=== PATIENT | male | born 1940 | race Caucasian/White ===

== ENCOUNTER 2022-04-06 12:07 | Inpatient (IN) | payer OTHER, SELFPAY ==
[2022-04-06] VITALS (20 sets, daily range): BP systolic 136–164; BP diastolic 66–77; PULSE 63–70; RESP 11–20; TEMP 36.6–36.8; O2SAT 95–98; BMI 25.4; BMI 25.1
--- NOTE | 2022-04-06 13:18 | CRLHL7_ITS ---
For Patients: As a result of the Century Cures Act, medical imaging exams and procedure reports are released immediately into your electronic medical record. You may view this report before your referring provider. If you have questions, please contact your health care provider. INDICATION: Fall TECHNIQUE: CT head without contrast. COMPARISON: None FINDINGS: CSF spaces: Within normal limits for age. Brain parenchyma: The geronimo-white differentiation is normal. No sign of mass, hemorrhage, or midline shift. Skull base and calvarium: Mild ethmoid sinus mucosal thickening. The visualized orbits are grossly unremarkable. No skull fractures. IMPRESSION: Atraumatic appearance of the brain. Dictated by Hermes Soler MD @ 04/06/2022 2:24:18 PM Please note that all CT scans at this facility use dose modulation, iterative reconstruction, and/or weight-based dosing when appropriate to reduce radiation dose to as low as reasonably achievable. Dictated by: Hermes Soler MD @ 04/06/2022 14:24:27 (Electronically Signed)
[2022-04-06 13:37] LABS: Lactate* 0.7 mmol/L (0.5-1.9)
--- NOTE | 2022-04-06 13:52 | ED.GENADULT ---
HPI - General Adult General Chief complaint: Syncope/Fainted Stated complaint: Fell, hit head Time Seen by Provider: 04/06/22 12:32 Source: patient Mode of arrival: ambulatory Limitations: no limitations History of Present Illness HPI narrative: 81-year-old male coming in today after 2 episodes of syncope that occurred this morning. He states that he was emptying the rack production worker in all of a sudden he remembers waking up after he was lying on the ground. His states that she heard of soon so she came into the room he was on the ground. She ran to him immediately and asked him if he was okay. He was able to reply yes and that he did know what happened. He then was able to get up and continue emptying the rack production worker. His left to the other room and about 10 minutes later she decided to go check on him again right when she walked into the kitchen she saw him start to go to the ground again so she ran to him and he fell on top of her. He hit his face on the what sounds like the edge of the rack production worker door and suffered a laceration to the lip. Unclear if his head hit the ground. Prior to this he has been feeling fine. Denies any recent illness. He remembers waking up within a few seconds and had clear mentation. He did not bite his tongue or lose bowel or bladder control. He denies headache, blurry vision, changes in his hearing. No recent chest pain or shortness of breath. Denies nausea or vomiting. 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 Recently was switched to Lexapro just this last week because he was told his previous medication was causing hyponatremia, he was told his sodium is 129 and then repeat was 130. Related Data Home Medications Medication Instructions Recorded Confirmed escitalopram oxalate 5 mg tablet mg 04/06/22 lisinopril 10 tab 04/06/22 mg-hydrochlorothiazide 12.5 mg tablet tamsulosin 0.4 mg capsule mg PO 04/06/22 Allergies Allergy/AdvReac Type Severity Reaction Status Date / Time No Known Drug Allergies Allergy Verified 04/06/22 12:40 PFSH PFSH Social History Smoking Status: Former smoker Do you use any of these nicotine containing products: None Second hand tobacco smoke exposure: No How often do you have a drink containing alcohol: 4 or more times a week How many standard drinks containing alcohol do you have on a typical day: 1 or 2 How often do you have six or more drinks on one occasion: Never AUDIT-C Alcohol total score: 4 Non-prescribed substance use: denies use service: Yes Exam Narrative: Exam Narrative: GCS is 15. Patient is breathing and speaking without any difficulty. Well-nourished well-developed patient in no acute distress. Alert and oriented. Answers questions appropriately. Mood and affect are appropriate. Thoughts are goal oriented and rational. No tangential or magical thinking noted. Patient speaks in full sentences without needing to catch their breath. Speech is not slurred or pressured. HEENT: Normocephalic. Pupils are equally round reactive to light. Extraocular muscles are intact. Conjunctivae are moist without any icterus noted. Moist mucous membranes. Posterior pharynx is normal. Neck is soft without any lymphadenopathy or thyromegaly. No masses are appreciated. I do not see any ecchymosis or evidence of trauma to the scalp. He does have about a 9 mm vertical laceration just below the left lower lip. This does not cross the vermilion border. Wound edges are gaping open. Cardiovascular: Heart is regular rate and rhythm S1 and S2 are present without any murmurs. Lungs: Clear to auscultation bilaterally no wheezes rhonchi or rales are appreciated. Patient takes deep breaths without any discomfort. Abdomen: Soft and nontender nondistended with normal bowel sounds. No guarding or rebound. No masses or organomegaly appreciated. Extremities: Bilateral lower extremities are without edema. Normal DP and PT pulses. Skin: Well perfused without any obvious rashes. Back: No tenderness to palpation of the cervical, thoracic or lumbar spine. There is no evidence of trauma to the back. Strength is 5/5 of the upper and lower extremities. Reflexes are 2+ and symmetric at the knees. Cranial nerves 3-12 are normal. [id number] is normal. There is no nystagmus either horizontally or vertically. Const: Vital Signs, click to edit/add: Vital Signs - 24 hr 04/06/22 12:40 04/06/22 13:57 04/06/22 13:00 Temperature 98 F Pulse Rate [Apical ] 68 70 Pulse Rate [orthos tatic lying Apical ] 65 Pulse Rate [orthos tatic sitting Apic al] Pulse Rate [orthos tatic standing Api steffen] Respiratory Rate 16 12 Blood Pressure [Le ft Upper Arm] 136/66 140/66 H Blood Pressure [or thostatic lying Le ft Arm] 140/70 H Blood Pressure [or thostatic sitting Left Arm] Blood Pressure [or thostatic standing Left Arm] Pulse Oximetry 96 97 Oxygen Delivery Me thod Room Air Room Air 04/06/22 14:00 04/06/22 14:01 04/06/22 14:01 Temperature Pulse Rate [Apical ] Pulse Rate [orthos tatic lying Apical ] Pulse Rate [orthos tatic sitting Apic al] 64 Pulse Rate [orthos tatic standing Api steffen] Respiratory Rate Blood Pressure [Le ft Upper Arm] Blood Pressure [or thostatic lying Le ft Arm] Blood Pressure [or thostatic sitting Left Arm] 147/71 H Blood Pressure [or thostatic standing Left Arm] 145/70 H Pulse Oximetry Oxygen Delivery Me thod 04/06/22 14:02 04/06/22 13:30 04/06/22 14:00 Temperature Pulse Rate [Apical ] 66 65 Pulse Rate [orthos tatic lying Apical ] Pulse Rate [orthos tatic sitting Apic al] Pulse Rate [orthos tatic standing Api steffen] 66 Respiratory Rate 16 14 Blood Pressure [Le ft Upper Arm] 141/68 H 151/71 H Blood Pressure [or thostatic lying Le ft Arm] Blood Pressure [or thostatic sitting Left Arm] Blood Pressure [or thostatic standing Left Arm] Pulse Oximetry 96 97 Oxygen Delivery Me thod Room Air Room Air Course Course Hospital Course: IV was established and labs were drawn. Patient went in for head CT which was unremarkable. Labs did show hyponatremia with a sodium of 122. Total bilirubin also elevated, unclear significance. Patient did not have any evidence of orthostatic hypotension. EKG showed normal sinus rhythm with a right bundle-branch block. IV fluids were started. Vital Signs Vital signs: Initial Vital Signs Temperature 98 F 04/06/22 12:40 Temperature Source Temporal Artery Scan 04/06/22 12:40 Pulse Rate 68 04/06/22 12:40 Pulse Rhythm 04/06/22 12:40 Respiratory Rate 16 04/06/22 12:40 Blood Pressure 136/66 04/06/22 12:40 Blood Pressure Mean 89 04/06/22 12:40 Pulse Oximetry 96 04/06/22 12:40 Oxygen Delivery Method 04/06/22 12:40 Vital Signs Temperature 98 F 04/06/22 12:40 Pulse Rate 68 04/06/22 12:40 Respiratory Rate 16 04/06/22 12:40 Blood Pressure 136/66 04/06/22 12:40 Pulse Oximetry 96 04/06/22 12:40 Oxygen Delivery Method 04/06/22 12:40 Temperature 98 F 04/06/22 12:40 Pulse Rate 66 04/06/22 14:02 Respiratory Rate 14 04/06/22 14:00 Blood Pressure 145/70 H 04/06/22 14:01 Pulse Oximetry 97 04/06/22 14:00 Oxygen Delivery Method 04/06/22 14:00 Medical Decision Making MDM Narrative Medical decision making narrative: 81-year-old male with syncope and hyponatremia. Patient will be admitted for further management. Medical Records Medical records reviewed: Yes I reviewed the patient's medical records Lab Data Lab results reviewed: Yes I reviewed the patient's lab results Labs: Lab Results 04/06/22 04/06/22 04/06/22 Range/Units 13:30 13:30 13:30 WBC 9.73 (4.50-11.00) K/uL RBC 4.49 (4.30-5.90) m/uL Hgb 13.9 (13.5-17.5) gm/dL Hct 39.2 (37.0-53.0) % MCV 87 (80-100) fL MCH 31 (26-34) pg MCHC 36 (32-36) gm/dL RDW Coeff of [place] 12.0 (11.5-15.5) % Plt Count 196 (140-440) K/uL Neut % (Auto) 86.9 H (42.0-72.0) % Lymph % (Auto) 6.0 L (20-44) % [place] % (Auto) 6.8 (0.0-11.0) % Eos % (Auto) 0.1 (0.0-7.0) % Baso % (Auto) 0.1 (0.0-3.0) % Neut # (Auto) 8.50 H (1.7-7.0) K/uL Lymph # (Auto) 0.60 L (0.90-2.90) K/uL [place] # (Auto) 0.70 (0.00-0.90) K/UL Eos # (Auto) 0.01 (0.00-0.50) K/uL Baso # (Auto) 0.01 (0.00-0.30) K/uL Abs Immat Gran (auto) 0.01 (0.00-0.30) K/uL ESR 2 (2-15) mm/hr Sodium 122 L* (135-149) mmol/L Potassium 4.2 (3.6-5.1) mmol/L Chloride 90 L (96-114) mmol/L Carbon Dioxide 24 (20-32) mmol/L BUN 13 (7-30) mg/dL Creatinine 0.8 (0.5-1.5) mg/dL Estimated Creat Clear 56.00 Estimated GFR 90 ml/min Glucose 110 (60-115) mg/dL Lactate (0.5-1.9) mmol/L Calcium 8.9 (8.4-10.6) mg/dL Total Bilirubin 2.7 H (0.1-1.5) mg/dL Direct Bilirubin 0.2 (0.0-0.5) mg/dL AST 18 (12-35) U/L ALT 14 (4-50) U/L Alkaline Phosphatase 62 (40-150) U/L Troponin I < 0.01 L (0.01-0.04) ng/mL C-Reactive Protein < 0.5 L (0.5-1.0) mg/dL Total Protein 6.5 (6.0-8.3) g/dL Albumin 4.2 (3.3-5.0) g/dL TSH (0.270-4.20) uIU/mL Urine Color (Yellow) Urine Appearance (Clear) Urine pH (5.0-8.5) Ur Specific [place] (1.000-1.030) Urine Protein (Negative) Urine Glucose (UA) (Negative) Urine Ketones (Negative) Urine Blood (Negative) Urine Nitrite (Negative) Urine Bilirubin (Negative) Urine Urobilinogen (0.2-1.0) Ur Leukocyte Esterase (Negative) Urine RBC (0-2) Urine WBC (0-5) Ur Squamous Epith Cells (None-Few) Urine Bacteria (None) Urine Trichomonas Ethyl Alcohol < 0.01 L (0.01-0.03) % 04/06/22 04/06/22 04/06/22 Range/Units 13:30 13:30 14:15 WBC (4.50-11.00) K/uL RBC (4.30-5.90) m/uL Hgb (13.5-17.5) gm/dL Hct (37.0-53.0) % MCV (80-100) fL MCH (26-34) pg MCHC (32-36) gm/dL RDW Coeff of Stanford (11.5-15.5) % Plt Count (140-440) K/uL Neut % (Auto) (42.0-72.0) % Lymph % (Auto) (20-44) % [place] % (Auto) (0.0-11.0) % Eos % (Auto) (0.0-7.0) % Baso % (Auto) (0.0-3.0) % Neut # (Auto) (1.7-7.0) K/uL Lymph # (Auto) (0.90-2.90) K/uL [place] # (Auto) (0.00-0.90) K/UL Eos # (Auto) (0.00-0.50) K/uL Baso # (Auto) (0.00-0.30) K/uL Abs Immat Gran (auto) (0.00-0.30) K/uL ESR (2-15) mm/hr Sodium (135-149) mmol/L Potassium (3.6-5.1) mmol/L Chloride (96-114) mmol/L Carbon Dioxide (20-32) mmol/L BUN (7-30) mg/dL Creatinine (0.5-1.5) mg/dL Estimated Creat Clear Estimated GFR ml/min Glucose (60-115) mg/dL Lactate 0.7 (0.5-1.9) mmol/L Calcium (8.4-10.6) mg/dL Total Bilirubin (0.1-1.5) mg/dL Direct Bilirubin (0.0-0.5) mg/dL AST (12-35) U/L ALT (4-50) U/L Alkaline Phosphatase (40-150) U/L Troponin I (0.01-0.04) ng/mL C-Reactive Protein (0.5-1.0) mg/dL Total Protein (6.0-8.3) g/dL Albumin (3.3-5.0) g/dL TSH 1.610 (0.270-4.20) uIU/mL Urine Color Yellow (Yellow) Urine Appearance Clear (Clear) Urine pH 7.0 (5.0-8.5) Ur Specific [place] 1.020 (1.000-1.030) Urine Protein Negative (Negative) Urine Glucose (UA) Negative (Negative) Urine Ketones 2+ A (Negative) Urine Blood 1+ A (Negative) Urine Nitrite Negative (Negative) Urine Bilirubin Negative (Negative) Urine Urobilinogen 1.0 (0.2-1.0) Ur Leukocyte Esterase Negative (Negative) Urine RBC 2-5 A (0-2) Urine WBC 0-2 (0-5) Ur Squamous Epith Cells None (None-Few) Urine Bacteria None (None) Urine Trichomonas TNP Ethyl Alcohol (0.01-0.03) % Imaging Data CT scan - head: Attestation: I have reviewed the pertinent imaging results. Radiologist's impression: FINDINGS: CSF spaces: Within normal limits for age. Brain parenchyma: The geronimo-white differentiation is normal. No sign of mass, hemorrhage, or midline shift. Skull base and calvarium: Mild ethmoid sinus mucosal thickening. The visualized orbits are grossly unremarkable. No skull fractures. IMPRESSION: Atraumatic appearance of the brain. ECG Data Attestation: I personally reviewed and interpreted this ECG as follows: (Normal sinus rhythm, right bundle branch block, pulse 68) Discharge Plan Discharge Clinical Impression: Hyponatremia, Syncope, Hyperbilirubinemia Patient Disposition: Admitted As Inpatient
[2022-04-06 13:54] LABS: Basophils Absolute Auto 0.01 K/uL (0.00-0.30); Basophils Percent Auto 0.1 % (0.0-3.0); Eosinophils Absolute Auto 0.01 K/uL (0.00-0.50); Eosinophils Percent Auto 0.1 % (0.0-7.0); Hematocrit 39.2 % (37.0-53.0); Hemoglobin* 13.9 gm/dL (13.5-17.5); Immature Granulocytes Abs Auto 0.01 K/uL (0.00-0.30); Mean Corpuscular HGB Conc 36 gm/dL (32-36); Mean Corpuscular Hemoglobin 31 pg (26-34); Mean Corpuscular Volume 87 fL (80-100); Monocytes Percent Auto 6.8 % (0.0-11.0); Neutrophils Percent Auto 86.9 % (42.0-72.0); Platelet Count* 196 K/uL (140-440); Red Blood Count 4.49 m/uL (4.30-5.90); White Blood Count* 9.73 K/uL (4.50-11.00)
[2022-04-06 13:56] LABS: Slide Review Reflex No
[2022-04-06 14:02] LABS: Albumin* 4.2 g/dL (3.3-5.0); Chloride* 90 mmol/L (96-114); Potassium* 4.2 mmol/L (3.6-5.1)
[2022-04-06 14:04] LABS: Creatinine* 0.8 mg/dL (0.5-1.5); Estimated Glomerular Filt Rate 90 ml/min
[2022-04-06 14:05] LABS: Alanine Aminotransferase* 14 U/L (4-50); Alkaline Phosphatase* 62 U/L (40-150); Aspartate Amino Transferase* 18 U/L (12-35); Bilirubin Direct* 0.2 mg/dL (0.0-0.5); Bilirubin Total* 2.7 mg/dL (0.1-1.5); Blood Urea Nitrogen* 13 mg/dL (7-30); Calcium* 8.9 mg/dL (8.4-10.6); Carbon Dioxide* 24 mmol/L (20-32); Glucose* 110 mg/dL (60-115); Total Protein* 6.5 g/dL (6.0-8.3)
[2022-04-06 14:22] LABS: C Reactive Protein* < 0.5 mg/dL (0.5-1.0)
[2022-04-06 14:26] LABS: Appearance Urine Clear (Clear); Bilirubin Urine Negative (Negative); Blood Urine 1+ (Negative); Color Urine Yellow (Yellow); Glucose Urine Negative (Negative); Ketones Urine 2+ (Negative); Leukocyte Esterase Urine Negative (Negative); Nitrite Urine Negative (Negative); Protein Urine Negative (Negative)
[2022-04-06 14:27] LABS: Ethanol* < 0.01 % (0.01-0.03); Sodium* 122 mmol/L (135-149); Troponin I* < 0.01 ng/mL (0.01-0.04)
--- NOTE | 2022-04-06 14:31 | ED.NURSE ---
dr ventura informed of cr low na -122.
[2022-04-06 14:32] LABS: WBC Urine 0-2 (0-5)
[2022-04-06 14:38] LABS: Erythrocyte SedimentationRate* 2 mm/hr (2-15)
[2022-04-06] MEDS: 0.9 % SODIUM CHLORIDE 1000 ml 1,000 ML IV (14:39)
--- NOTE | 2022-04-06 14:51 | ED.NURSE ---
dr ramos' office ([facility] – [place]) was notified that he will be admitted to the hospital due to llow na-122. this was initialed per deep as he wanted dr grigsby to be aware.
--- NOTE | 2022-04-06 15:15 | ED.NURSE ---
bottom left lip was sutured per dr ventura with 2 sutures being placed.
[2022-04-06 16:19] LABS: SARS PCR* Negative SARS-CoV-2 (Negative)
--- NOTE | 2022-04-06 16:35 | W.PC.EDHO ---
Primary Language: Preferred Language: Orientation Status: [] Alert & Oriented [] Slight Confusion [] Known Dx Dementia Transfers By: [] Assist of 1 [] Assist of 2 [] Lift Active Medications Discontinued Medications Generic Name Dose Route Start Last Admin Trade Name Juju PRN Reason Stop Dose Admin Sodium Chloride 1,000 mls @ 1,000 mls/hr 04/06/22 14:30 04/06/22 15:30 0.9 % Sodium Chloride 1000 Ml IV 04/06/22 15:29 Infused .Q1H JAKUB Infusion Description of Symptoms ED Triage Present Problem had 2 episodes this am of losing consciousness and Description falling to the floor. did fall onto his and she is also an ED pt due to her breaking her fall. has a sore nose and lower lip. is aware of events surrounding the incidents. denies any other trauma. was out for only a few seconds. the time between the events were less than 10 minutes. had not had brfst yet. did not sleep well. is on new medication-lexapro. ED Triage Date of Onset of 04/06/22 Symptoms Female History Patient Zara Coma Scale [place] coma scale total score 15 Pain Pain Description [Lower Face] Sharp,Dull, Achy Pain Description [Lower Face] Tender Pain Intensity [Lower Face] 1 Pain Intensity [Lower Face] 1 Pain Intensity 1 Pain Scale Used [Lower Face] Numeric (1 - 10) Pain Scale Used [Lower Face] Numeric (1 - 10) Pain Scale Used Numeric (1 - 10) IV Insertion/Site Date of IV Line Insertion [ 04/06/22 Right Antecubital] Oxygen Administration Pulse Oximetry 97 Pulse Oximetry 96 Pulse Oximetry 97 Pulse Oximetry 96 Oxygen Delivery Method Room Air Oxygen Delivery Method Room Air Oxygen Delivery Method Room Air Oxygen Delivery Method Room Air Cardiac Monitoring EKG Method 12 Lead
--- NOTE | 2022-04-06 18:34 | P.IMHP_ITS ---
Hospitalist- H&P: HPI History of Present Illness Time Seen by Provider: 18:20 Date Seen: 04/07/22 Chief complaint: Fell, hit head Narrative: Hermes Paula is a 81 year old male who presented through the ER for presyncope/syncope. He got up as usual this morning and went out to garage to exercise, but didn't feel right, so went back in house without exercising and started to put dishes away from chip separator. Next thing he knew his was picking him up off the floor. Then he blacked out again and came to having fallen onto his . His says she was in laundry room and heard a tray fall and a thump on the floor. She went to check on him and he was underneath the door of the chip separator. It appeared the chip separator door had hit his face and he had a small lip laceration. He was awake and said he was okay and started to stand up. She went back to laundry room and came back to check on him less than 10 minutes later. He was looking like he was going to pass out again, so she tried to catch him, but got pinned underneath him for a few minutes. His upper body was rigid and shaking in the shoulders and arms and his eyes were rolling around. He did not completely lose consciousness that she saw either time. He did not loose bowel or bladder, did not bite tongue or inside of cheek. He was red, hot, flushed, and sweaty, not pale. When he became more aware, he was able to get up and they called their daughter, who brought them both to the ER. He had a syncopal episode at home in mid January. This was associated with abdominal pain and he has a history of diverticulitis. He called his primary care provider who told him to eat a bland diet for a week. He did that and it got better. Did not have any more syncopal episodes until today. A week ago he started taking escitalopram. Since then he has felt fatigued and finds himself yawning frequently, several times an hour. He has felt more stressed and each day this week he felt like it was getting harder and harder to fall asleep. He and his family described a mental breakdown earlier this year for which he was hospitalized in an inpatient psychiatric briones at [facility] in [facility]. During this mental breakdown he had hallucinations and delusions. He saw things such as lights coming out of people skin or heads, little green men, and thought that his with these aliens were going to kill him. Since being hospitalized for this, his and daughter tell me that he has not been the same. He has had some trouble with memory, he does not try past himself, will start to talk and then stop mid sentence, refusing to stay anymore or saying that he does not know what to say. I have reviewed Dr. Landin's note from 02/17/2022. This is his psychiatrist. He has been referred to get comprehensive memory testing, but this has not yet taken place. At that time he saw his psychiatrist, he had been off olanzapine for a while and was having more insomnia, irritability, loss of interest in things. He was started back on olanzapine at that time. His course of this finished on March 20. He was prescribed escitalopram but had not yet started it. He saw his primary care provider, Dr. Coleman, on 04/01/2022 for an annual physical. At that time his sodium was 129. He started taking escitalopram. Review of Systems Const: Reports: fatigue (fatigues easily and yawns a lot over the past week, since new med) and malaise; Denies: fever, chills or night sweats Eyes: Reports: blurry vision (harder seeing at night in last six months, has appt with eye doctor); Denies: change in vision Cardio: Denies: chest pain, palpitations, swelling of feet/ankles, lightheadedness or shortness of breath with exertion Resp: Denies: shortness of breath or cough GI: Reports: diarrhea (one time yesterday); Denies: abdominal pain, nausea or vomiting : Reports: urinary urgency and nighttime urination (3x/night); Denies: painful urination or urinary frequency Musculo: Denies: back pain Integ/Breast: Denies: rash Neuro: Denies: headache Psych: Reports: anxiety, difficulty concentrating and other (depression) Endo: Reports: fatigue (fatigues easily and yawns a lot over the past week, since new med) [facility] Medical History (Updated 04/07/22 @ 00:43 by Anna Murphy MD) Acid reflux Anxiety BPH (benign prostatic hyperplasia) Hearing loss of both ears Hypertension Hyponatremia 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 Denies recreational drug use. Highest level of school completed/degree received: high school graduate Smoking Status: Former smoker Do you use any of these nicotine containing products: None Second hand tobacco smoke exposure: No How often do you have a drink containing alcohol: 4 or more times a week Alcohol type: wine How many standard drinks containing alcohol do you have on a typical day: 1 or 2 How often do you have six or more drinks on one occasion: Never AUDIT-C Alcohol total score: 4 Non-prescribed substance use: denies use Caffeine: Yes (2 cups daily) service: Yes Meds Home Medications and Allergies Home Medications Medication Instructions Recorded Confirmed Type cholecalciferol (vitamin D3) 25 1,000 unit PO DAILY 04/06/22 04/06/22 History mcg (1,000 unit) tablet (Vitamin D3) escitalopram oxalate 5 mg tablet 5 mg PO DAILY 04/06/22 04/06/22 History lisinopril 10 1 tab PO DAILY 04/06/22 04/06/22 History mg-hydrochlorothiazide 12.5 mg tablet tamsulosin 0.4 mg capsule 0.4 mg PO DAILY 04/06/22 04/06/22 History Allergies Allergy/AdvReac Type Severity Reaction Status Date / Time No Known Drug Allergies Allergy Verified 04/06/22 12:40 Exam Narrative: Exam Narrative: General: No acute distress. Awake alert oriented x3. HEENT: Normocephalic atraumatic, pace has 2 small abrasions on the left nostril and a hemostatic suture-repaired left lower lip laceration, pupils equally round and reactive to light and accommodation. Oropharynx clear. Mucous membranes are moist. No cervical lymphadenopathy, thyromegaly or carotid bruits. No JVD. Cardiovascular: Regular rate and rhythm. No murmurs, gallops, or rubs. Chest: No increased work of breathing. Clear to auscultation bilaterally. No crackles or wheezes. Abdomen: Bowel sounds present. Soft, nondistended, nontender. No hepa tosplenomegaly or masses. Extremities: No edema, no cyanosis or clubbing. Skin: No jaundice, no pallor, no rashes. Neuro: There are no focal deficits. Romberg is negative. Gait was not assessed, daughter reports he was able to ambulate and transfer himself into and out of the car on his own to get to the emergency department today. Cranial nerves 2-12 are intact. Extraocular movements are full. No nystagmus. No facial asymmetry. Tongue is midline. Peripheral vision and vision are grossly intact. Strength is 5/5 in all 4 extremities. Light touch sensation is intact in face body and extremities. Coordination is intact in upper and lower extremities. DTRs are intact and symmetric in upper and lower extremities. Const: Vital Signs, click to edit/add: Vital Signs - 24 hr 04/06/22 12:40 04/06/22 13:57 04/06/22 13:00 Temperature 98 F Pulse Rate [Apical ] 68 70 Pulse Rate [Left A pical] Pulse Rate [orthos tatic lying Apical ] 65 Pulse Rate [orthos tatic sitting Apic al] Pulse Rate [orthos tatic standing Api steffen] Respiratory Rate 16 12 Blood Pressure [Le ft Upper Arm] 136/66 140/66 H Blood Pressure [Ri ght Arm] Blood Pressure [or thostatic lying Le ft Arm] 140/70 H Blood Pressure [or thostatic sitting Left Arm] Blood Pressure [or thostatic standing Left Arm] Pulse Oximetry 96 97 Oxygen Delivery Me thod Room Air Room Air 04/06/22 14:00 04/06/22 14:01 04/06/22 14:01 Temperature Pulse Rate [Apical ] Pulse Rate [Left A pical] Pulse Rate [orthos tatic lying Apical ] Pulse Rate [orthos tatic sitting Apic al] 64 Pulse Rate [orthos tatic standing Api steffen] Respiratory Rate Blood Pressure [Le ft Upper Arm] Blood Pressure [Ri ght Arm] Blood Pressure [or thostatic lying Le ft Arm] Blood Pressure [or thostatic sitting Left Arm] 147/71 H Blood Pressure [or thostatic standing Left Arm] 145/70 H Pulse Oximetry Oxygen Delivery Me thod 04/06/22 14:02 04/06/22 13:30 04/06/22 14:00 Temperature Pulse Rate [Apical ] 66 65 Pulse Rate [Left A pical] Pulse Rate [orthos tatic lying Apical ] Pulse Rate [orthos tatic sitting Apic al] Pulse Rate [orthos tatic standing Api steffen] 66 Respiratory Rate 16 14 Blood Pressure [Le ft Upper Arm] 141/68 H 151/71 H Blood Pressure [Ri ght Arm] Blood Pressure [or thostatic lying Le ft Arm] Blood Pressure [or thostatic sitting Left Arm] Blood Pressure [or thostatic standing Left Arm] Pulse Oximetry 96 97 Oxygen Delivery Nj thod Room Air Room Air 04/06/22 17:25 04/06/22 14:36 04/06/22 15:00 Temperature 98.1 F Pulse Rate [Apical ] 64 63 Pulse Rate [Left A pical] 70 Pulse Rate [orthos tatic lying Apical ] Pulse Rate [orthos tatic sitting Apic al] Pulse Rate [orthos tatic standing Api steffen] Respiratory Rate 20 Blood Pressure [Le ft Upper Arm] 144/68 H 148/71 H Blood Pressure [Ri ght Arm] 164/77 H Blood Pressure [or thostatic lying Le ft Arm] Blood Pressure [or thostatic sitting Left Arm] Blood Pressure [or thostatic standing Left Arm] Pulse Oximetry 97 98 98 Oxygen Delivery Nj thod Room Air Room Air Room Air 04/06/22 15:30 04/06/22 16:00 04/06/22 16:30 Temperature Pulse Rate [Apical ] 68 67 67 Pulse Rate [Left A pical] Pulse Rate [orthos tatic lying Apical ] Pulse Rate [orthos tatic sitting Apic al] Pulse Rate [orthos tatic standing Api steffen] Respiratory Rate 13 14 Blood Pressure [Le ft Upper Arm] 149/73 H 154/73 H 139/68 Blood Pressure [Ri ght Arm] Blood Pressure [or thostatic lying Le ft Arm] Blood Pressure [or thostatic sitting Left Arm] Blood Pressure [or thostatic standing Left Arm] Pulse Oximetry 98 98 97 Oxygen Delivery Nj thod Room Air Room Air Room Air 04/06/22 13:47 04/06/22 13:49 04/06/22 13:50 Temperature Pulse Rate [Apical ] 64 64 Pulse Rate [Left A pical] Pulse Rate [orthos tatic lying Apical ] Pulse Rate [orthos tatic sitting Apic al] Pulse Rate [orthos tatic standing Api steffen] Respiratory Rate 11 L 12 13 Blood Pressure [Le ft Upper Arm] 140/70 H 147/71 H 145/70 H Blood Pressure [Ri ght Arm] Blood Pressure [or thostatic lying Le ft Arm] Blood Pressure [or thostatic sitting Left Arm] Blood Pressure [or thostatic standing Left Arm] Pulse Oximetry 97 98 96 Oxygen Delivery Me thod Room Air Room Air Room Air Documenting provider has reviewed patient's vital signs: yes Hospitalist - H&P: Result Labs Labs: Short CBC 04/06/22 Range/Units 13:30 WBC 9.73 (4.50-11.00) K/uL Hgb 13.9 (13.5-17.5) gm/dL Hct 39.2 (37.0-53.0) % Plt Count 196 (140-440) K/uL BMP 04/06/22 13:30 Sodium 122 L* Potassium 4.2 Chloride 90 L Carbon Dioxide 24 BUN 13 Creatinine 0.8 Glucose 110 Calcium 8.9 Cardiac Enzymes 04/06/22 Range/Units 13:30 Troponin I < 0.01 L (0.01-0.04) ng/mL Liver Function 04/06/22 Range/Units 13:30 Total Bilirubin 2.7 H (0.1-1.5) mg/dL Direct Bilirubin 0.2 (0.0-0.5) mg/dL AST 18 (12-35) U/L ALT 14 (4-50) U/L Alkaline Phosphatase 62 (40-150) U/L Albumin 4.2 (3.3-5.0) g/dL Urine 04/06/22 Range/Units 14:15 Urine Color Yellow (Yellow) Urine Appearance Clear (Clear) Urine pH 7.0 (5.0-8.5) Ur Specific [place] 1.020 (1.000-1.030) Urine Protein Negative (Negative) Urine Glucose (UA) Negative (Negative) ECG Attestation: I personally reviewed and interpreted this ECG as follows: (EKG shows normal sinus rhythm, heart rate 60 beats per minute. Right bundle branch block.) Imaging CT scan - head: Attestation: I have reviewed the pertinent imaging results. Radiologist's impression: Ordering Physician: Shannan Aguayo MD Date of Service: 04/06/22 Procedure(s): CT head/brain wo con Accession Number(s): [id number] cc: Malcolm Coleman MD; Shannan Aguayo MD~ For Patients: As a result of the 21st Century Cures Act, medical imaging exams and procedure reports are released immediately into your electronic medical record. You may view this report before your referring provider. If you have questions, please contact your health care provider. INDICATION: Fall TECHNIQUE: CT head without contrast. COMPARISON: None FINDINGS: CSF spaces: Within normal limits for age. Brain parenchyma: The geronimo-white differentiation is normal. No sign of mass, hemorrhage, or midline shift. Skull base and calvarium: Mild ethmoid sinus mucosal thickening. The visualized orbits are grossly unremarkable. No skull fractures. IMPRESSION: Atraumatic appearance of the brain. Dictated by Hermes Soler MD @ 04/06/2022 2:24:18 PM Please note that all CT scans at this facility use dose modulation, iterative reconstruction, and/or weight-based dosing when appropriate to reduce radiation dose to as low as reasonably achievable. Dictated by: Hermes Soler MD @ 04/06/2022 14:24:27 (Electronically Signed) Assessment and Plan Assessment and plan (1) Hyponatremia: Problem comment: Suspect related to SSRI use, patient is also on diuretic (lisinopril/hydrochlorothiazide) Status: Acute Assessment and Plan: I did not order a FENA since this would be unreliable in the setting of diuretic use. Admit for observation with IV normal saline over the next 8 hours, 2000 mL per day fluid restriction, stop escitalopram, hold diuretic, check sodium now, and recheck sodium in the morning. (2) Syncope: Problem comment: Presyncope versus syncope verses seizure Status: Acute Assessment and Plan: Head CT unremarkable. I think this most likely presyncope. According to his , he had no true loss of consciousness. He had no loss of bowel or bladder function and no tongue biting. The cause of presyncope is not immediately clear, but possibly related to hyponatremia. Orthostatic vital signs are unremarkable. He does not appear volume depleted although he does have ketones in his urine. He will be getting a L of normal saline over the next 8 hours. Monitor on telemetry overnight. Place seizure precautions. Plan VTE risk is low. Reassess if patient is going to be here for more than 1 midnight.
[2022-04-06 20:26] LABS: Sodium* 123 mmol/L (135-149)
[2022-04-06] MEDS: 0.9 % SODIUM CHLORIDE 1000 ml 1,000 ML 125 ML IV (21:02)
--- NOTE | 2022-04-06 22:09 | PC.NURSE ---
Shift Note 19-23: pt pleasant and cooperative, VSS with the exception of elevated BP. LS clear, BS active, Tele reads NSR. Pt up with SBA with walker and gait belt, gait steady, Pt denies dizziness or syncope. Pt has small laceration on upper lip with 2 sutures resulted from today's fall. Pt denies pain or stiffness. Pt does need frequent cuing and encouragement for ADLs, but is A&O x3. PIV in right AC is asymptomatic and patent with NS running. See eMAR for medication administration and lab report for electrolyte levels.
[2022-04-07] VITALS (10 sets, daily range): BP systolic 146–215; BP diastolic 68–107; PULSE 63–89; RESP 16–20; TEMP 36.8–36.9; O2SAT 95–97
[2022-04-07] MEDS: 0.9 % SODIUM CHLORIDE 1000 ml 1,000 ML 125 ML IV (04:30)
--- NOTE | 2022-04-07 06:03 | PC.NURSE ---
end of shift. pt has been very pleasant. no pain. tele is NSR. IV is patent. he is a fall risk. alarms are on. he is up with SBA. he has some dizziness and lightheadedness at times. he has been steady for story writer. Pt has small laceration on upper lip. ortho BP done. he was not dizzy or lightheaded last time up. he is eating, drinking and voiding with no problems. he is using the call light appropiately.
[2022-04-07 07:28] LABS: Chloride* 93 mmol/L (96-114); Potassium* 4.1 mmol/L (3.6-5.1); Sodium* 125 mmol/L (135-149)
[2022-04-07 07:30] LABS: Creatinine* 0.7 mg/dL (0.5-1.5); Estimated Glomerular Filt Rate 94 ml/min
[2022-04-07 07:31] LABS: Blood Urea Nitrogen* 10 mg/dL (7-30); Calcium* 8.6 mg/dL (8.4-10.6); Carbon Dioxide* 22 mmol/L (20-32); Glucose* 100 mg/dL (60-115)
[2022-04-07] MEDS: lisinopriL 10 MG TABLET PO (07:55)
[2022-04-07] MEDS: TAMSULOSIN HCL 0.4 MG CAPSULE PO (07:56)
[2022-04-07] MEDS: TORSEMIDE 5 MG TABLET PO (08:38)
--- NOTE | 2022-04-07 13:02 | PM.IMPN1 ---
Progress Note: A&P Assessment and plan (1) Hyponatremia: Problem details: Probably due to SSRI plus hydrochlorothiazide. At baseline is borderline hyponatremic chronically probably due to hydrochlorothiazide Status: Acute Assessment and Plan: Discontinue hydrochlorothiazide and Lexapro. Fluid restriction and monitor. (2) Syncope: Problem details: Presyncope versus syncope verses seizure Status: Acute Assessment and Plan: Cardiac monitoring, symptom monitoring, vital sign monitoring. (3) Hyperbilirubinemia: Status: Acute Assessment and Plan: Probably [place] (4) Hypertension: Status: Acute Assessment and Plan: Continue lisinopril. I am going to add a low dose of torsemide which will likely be necessary for blood pressure control and also possibly beneficial for hyponatremia. Time Spent With Patient Total time spent: Total time spent today is 40 minutes, 30 minutes in coordination of care and discussing with patient and other providers management of hyponatremia and syncope Subjective Date Seen: 04/07/22 Interval history: 81-year-old male admitted to the hospital with falls/possible syncope at home and hyponatremia. Uncertain whether the episodes had syncope or whether he fell. No obvious signs of seizures apparently noted by his . He reports that he did feel lightheaded yesterday but no longer feels that way. Overnight he has done well. He has no concerns today other than the cut on his lip. Sodium on admission was 122. In reviewing his records from clinic it looks like his sodium runs around 135 chronically but was as low as 129 last month. He has been chronically on hydrochlorothiazide 12.5 mg daily and recently started on Lexapro. He denies any recent injury or illness. He had an elevated bilirubin of 2.7, largely unconjugated on admission. I reviewed his old medical records for this. It appears his baseline bilirubin over the last 6 years has been around 1.8, largely unconjugated. This is suggestive of a chronic condition such as [place] syndrome Exam Narrative: Exam Narrative: He is alert and appears in no distress. Speech is normal. He is oriented to being in the hospital. He is limited in the details he can give about the events of yesterday indicating some forgetfulness or possibly he was unconscious. Head is noted for a cut on his lower lip on the left side. No other obvious trauma. Respirations are clear to auscultation. Cardiovascular: S1, S2, regular rate and rhythm. Abdomen: Bowel sounds active. Abdomen is soft without tenderness or mass. Extremities without edema. He has no tremor. He moves all 4 extremities well. [id number] is normal. Const: Vital Signs, click to edit/add: Vital Signs - 24 hr 04/06/22 13:57 04/06/22 14:00 04/06/22 14:01 Temperature Pulse Rate Pulse Rate [Apical ] Pulse Rate [Left A pical] Pulse Rate [orthos tatic lying Apical ] 65 Pulse Rate [orthos tatic sitting Apic al] 64 Pulse Rate [orthos tatic standing Api steffen] Respiratory Rate Blood Pressure [Le ft Upper Arm] Blood Pressure [Ri ght Arm] Blood Pressure [or thostatic lying Le ft Arm] 140/70 H Blood Pressure [or thostatic sitting Left Arm] 147/71 H Blood Pressure [or thostatic standing Left Arm] Pulse Oximetry Oxygen Delivery Me thod 04/06/22 14:01 04/06/22 14:02 04/06/22 13:30 Temperature Pulse Rate Pulse Rate [Apical ] 66 Pulse Rate [Left A pical] Pulse Rate [orthos tatic lying Apical ] Pulse Rate [orthos tatic sitting Apic al] Pulse Rate [orthos tatic standing Api steffen] 66 Respiratory Rate 16 Blood Pressure [Le ft Upper Arm] 141/68 H Blood Pressure [Ri ght Arm] Blood Pressure [or thostatic lying Le ft Arm] Blood Pressure [or thostatic sitting Left Arm] Blood Pressure [or thostatic standing Left Arm] 145/70 H Pulse Oximetry 96 Oxygen Delivery Pa thod Room Air 04/06/22 14:00 04/06/22 17:25 04/06/22 14:36 Temperature 98.1 F Pulse Rate Pulse Rate [Apical ] 65 64 Pulse Rate [Left A pical] 70 Pulse Rate [orthos tatic lying Apical ] Pulse Rate [orthos tatic sitting Apic al] Pulse Rate [orthos tatic standing Api steffen] Respiratory Rate 14 20 Blood Pressure [Le ft Upper Arm] 151/71 H 144/68 H Blood Pressure [Ri ght Arm] 164/77 H Blood Pressure [or thostatic lying Le ft Arm] Blood Pressure [or thostatic sitting Left Arm] Blood Pressure [or thostatic standing Left Arm] Pulse Oximetry 97 97 98 Oxygen Delivery Pa thod Room Air Room Air Room Air 04/06/22 15:00 04/06/22 15:30 04/06/22 16:00 Temperature Pulse Rate Pulse Rate [Apical ] 63 68 67 Pulse Rate [Left A pical] Pulse Rate [orthos tatic lying Apical ] Pulse Rate [orthos tatic sitting Apic al] Pulse Rate [orthos tatic standing Api steffen] Respiratory Rate 13 Blood Pressure [Le ft Upper Arm] 148/71 H 149/73 H 154/73 H Blood Pressure [Ri ght Arm] Blood Pressure [or thostatic lying Le ft Arm] Blood Pressure [or thostatic sitting Left Arm] Blood Pressure [or thostatic standing Left Arm] Pulse Oximetry 98 98 98 Oxygen Delivery Pa thod Room Air Room Air Room Air 04/06/22 16:30 04/06/22 13:47 04/06/22 13:49 Temperature Pulse Rate Pulse Rate [Apical ] 67 64 Pulse Rate [Left A pical] Pulse Rate [orthos tatic lying Apical ] Pulse Rate [orthos tatic sitting Apic al] Pulse Rate [orthos tatic standing Api steffen] Respiratory Rate 14 11 L 12 Blood Pressure [Le ft Upper Arm] 139/68 140/70 H 147/71 H Blood Pressure [Ri ght Arm] Blood Pressure [or thostatic lying Le ft Arm] Blood Pressure [or thostatic sitting Left Arm] Blood Pressure [or thostatic standing Left Arm] Pulse Oximetry 97 97 [facility] 04/06/22 13:50 04/06/22 19:43 04/06/22 20:40 Temperature Pulse Rate 69 Pulse Rate [Apical ] 64 Pulse Rate [Left A pical] Pulse Rate [orthos tatic lying Apical ] Pulse Rate [orthos tatic sitting Apic al] Pulse Rate [orthos tatic standing Api steffen] Respiratory Rate 13 20 Blood Pressure [Le ft Upper Arm] 145/70 H Blood Pressure [Ri ght Arm] Blood Pressure [or thostatic lying Le ft Arm] Blood Pressure [or thostatic sitting Left Arm] Blood Pressure [or thostatic standing Left Arm] Pulse Oximetry 96 97 [facility] 04/06/22 19:30 04/06/22 23:15 04/06/22 23:15 Temperature 98.1 F 98.3 F Pulse Rate Pulse Rate [Apical ] Pulse Rate [Left A pical] 69 Pulse Rate [orthos tatic lying Apical ] Pulse Rate [orthos tatic sitting Apic al] Pulse Rate [orthos tatic standing Api steffen] Respiratory Rate 16 18 18 Blood Pressure [Le ft Upper Arm] Blood Pressure [Ri ght Arm] 149/66 H 155/72 H Blood Pressure [or thostatic lying Le ft Arm] Blood Pressure [or thostatic sitting Left Arm] Blood Pressure [or thostatic standing Left Arm] Pulse Oximetry 97 95 Oxygen Delivery Me thod Room Air Room Air 04/07/22 00:08 04/07/22 03:20 04/07/22 03:22 Temperature 98.2 F Pulse Rate 64 Pulse Rate [Apical ] Pulse Rate [Left A pical] Pulse Rate [orthos tatic lying Apical ] 89 Pulse Rate [orthos tatic sitting Apic al] 81 Pulse Rate [orthos tatic standing Api steffen] 70 Respiratory Rate 16 Blood Pressure [Le ft Upper Arm] Blood Pressure [Ri ght Arm] 162/80 H Blood Pressure [or thostatic lying Le ft Arm] 215/107 H Blood Pressure [or thostatic sitting Left Arm] 199/98 H Blood Pressure [or thostatic standing Left Arm] 162/80 H Pulse Oximetry 96 Oxygen Delivery Me thod Room Air 04/07/22 07:20 04/07/22 07:40 04/07/22 10:00 Temperature 98.4 F Pulse Rate 63 Pulse Rate [Apical ] Pulse Rate [Left A pical] 68 Pulse Rate [orthos tatic lying Apical ] 72 Pulse Rate [orthos tatic sitting Apic al] 73 Pulse Rate [orthos tatic standing Api steffen] 76 Respiratory Rate 20 Blood Pressure [Le ft Upper Arm] Blood Pressure [Ri ght Arm] 151/68 H Blood Pressure [or thostatic lying Le ft Arm] 157/72 H Blood Pressure [or thostatic sitting Left Arm] 159/72 H Blood Pressure [or thostatic standing Left Arm] 164/78 H Pulse Oximetry 95 Oxygen Delivery Me thod Room Air 04/07/22 11:00 Temperature 98.3 F Pulse Rate Pulse Rate [Apical ] Pulse Rate [Left A pical] 69 Pulse Rate [orthos tatic lying Apical ] Pulse Rate [orthos tatic sitting Apic al] Pulse Rate [orthos tatic standing Api steffen] Respiratory Rate 18 Blood Pressure [Le ft Upper Arm] Blood Pressure [Ri ght Arm] 146/68 H Blood Pressure [or thostatic lying Le ft Arm] Blood Pressure [or thostatic sitting Left Arm] Blood Pressure [or thostatic standing Left Arm] Pulse Oximetry 97 Oxygen Delivery Me thod Room Air Documenting provider has reviewed patient's vital signs: yes Labs Labs: Laboratory Results - last 24 hr 04/06/22 04/06/22 04/06/22 13:30 13:30 13:30 WBC 9.73 RBC 4.49 Hgb 13.9 Hct 39.2 MCV 87 MCH 31 MCHC 36 RDW Coeff of [place] 12.0 Plt Count 196 Neut % (Auto) 86.9 H Lymph % (Auto) 6.0 L Stephens % (Auto) 6.8 Eos % (Auto) 0.1 Baso % (Auto) 0.1 Neut # (Auto) 8.50 H Lymph # (Auto) 0.60 L Stephens # (Auto) 0.70 Eos # (Auto) 0.01 Baso # (Auto) 0.01 Abs Immat Gran (auto) 0.01 ESR 2 Sodium 122 L* Potassium 4.2 Chloride 90 L Carbon Dioxide 24 BUN 13 Creatinine 0.8 Estimated Creat Clear 56.00 Estimated GFR 90 Glucose 110 Lactate Calcium 8.9 Total Bilirubin 2.7 H Direct Bilirubin 0.2 AST 18 ALT 14 Alkaline Phosphatase 62 Troponin I < 0.01 L C-Reactive Protein < 0.5 L Total Protein 6.5 Albumin 4.2 TSH Urine Color Urine Appearance Urine pH Ur Specific [place] Urine Protein Urine Glucose (UA) Urine Ketones Urine Blood Urine Nitrite Urine Bilirubin Urine Urobilinogen Ur Leukocyte Esterase Urine RBC Urine WBC Ur Squamous Epith Cells Urine Bacteria Urine Trichomonas Ethyl Alcohol < 0.01 L SARS-CoV-2 (PCR) 04/06/22 04/06/22 04/06/22 13:30 13:30 14:15 WBC RBC Hgb Hct MCV MCH MCHC RDW Coeff of [place] Plt Count Neut % (Auto) Lymph % (Auto) Stephens % (Auto) Eos % (Auto) Baso % (Auto) Neut # (Auto) Lymph # (Auto) Stephens # (Auto) Eos # (Auto) Baso # (Auto) Abs Immat Gran (auto) ESR Sodium Potassium Chloride Carbon Dioxide BUN Creatinine Estimated Creat Clear Estimated GFR Glucose Lactate 0.7 Calcium Total Bilirubin Direct Bilirubin AST ALT Alkaline Phosphatase Troponin I C-Reactive Protein Total Protein Albumin TSH 1.610 Urine Color Yellow Urine Appearance Clear Urine pH 7.0 Ur Specific [place] 1.020 Urine Protein Negative Urine Glucose (UA) Negative Urine Ketones 2+ A Urine Blood 1+ A Urine Nitrite Negative Urine Bilirubin Negative Urine Urobilinogen 1.0 Ur Leukocyte Esterase Negative Urine RBC 2-5 A Urine WBC 0-2 Ur Squamous Epith Cells None Urine Bacteria None Urine Trichomonas TNP Ethyl Alcohol SARS-CoV-2 (PCR) 04/06/22 04/06/22 04/07/22 14:53 19:57 06:18 WBC RBC Hgb Hct MCV MCH MCHC RDW Coeff of [place] Plt Count Neut % (Auto) Lymph % (Auto) Stephens % (Auto) Eos % (Auto) Baso % (Auto) Neut # (Auto) Lymph # (Auto) Stephens # (Auto) Eos # (Auto) Baso # (Auto) Abs Immat Gran (auto) ESR Sodium 123 L* 125 L Potassium 4.1 Chloride 93 L Carbon Dioxide 22 BUN 10 Creatinine 0.7 Estimated Creat Clear 56.00 Estimated GFR 94 Glucose 100 Lactate Calcium 8.6 Total Bilirubin Direct Bilirubin AST ALT Alkaline Phosphatase Troponin I C-Reactive Protein Total Protein Albumin TSH Urine Color Urine Appearance Urine pH Ur Specific [place] Urine Protein Urine Glucose (UA) Urine Ketones Urine Blood Urine Nitrite Urine Bilirubin Urine Urobilinogen Ur Leukocyte Esterase Urine RBC Urine WBC Ur Squamous Epith Cells Urine Bacteria Urine Trichomonas Ethyl Alcohol SARS-CoV-2 (PCR) Negative SARS-CoV-2
--- NOTE | 2022-04-07 13:46 | REH.OT ---
Orders received for OT eval and treat. Pt. moving well and able to complete ADLs. Discussion with patient regarding outpatient cognitive assessments with OT as he is not able to get an appointment for neuropsych testing until August. Patient's daughter present and both agree with outpatient OT. Order obtained and contact information given to patient's daughter.
--- NOTE | 2022-04-07 14:19 | PC.NURSE ---
Patient up to chair for meals. Denies pain or dizziness. Eval by Dr. Hairston, OT, PT and myself this shift. Orthostatic bps completed and results provided to Dr. Hairston. IV to SL. New orders for lisinopril and torsemide initiated with morning med pass. Pt voided 1450cc plus on day shift. Good appetite. Tele indicates NSR with BBB. Pt changed to inpatient status from observation status. Plan recheck of labs in am. Sodium level up to 125. Dtr Elsi updated on plan of care. Report will be given to oncoming shift.
[2022-04-07 15:55] LABS: Sodium* 125 mmol/L (135-149)
--- NOTE | 2022-04-07 23:30 | PC.NURSE ---
Shift Note [id number]: Shift unremarkable. 2000cc FR remains in place.
[2022-04-08 03:00] VITALS: BP 154/73; PULSE 88; RESP 18; TEMP 36.9; O2SAT 97
--- NOTE | 2022-04-08 06:48 | PC.NURSE ---
pleasant and cooperative. [place]. Calls appropriately. No c/o pain. VSS. Stitches to lower lip intact. Tele = NS w/ BBB.
[2022-04-08 07:00] VITALS: BP 173/83; PULSE 83; RESP 18; TEMP 36.8; O2SAT 97
[2022-04-08 07:26] LABS: Albumin* 3.8 g/dL (3.3-5.0); Chloride* 94 mmol/L (96-114)
[2022-04-08 07:27] LABS: Potassium* 3.7 mmol/L (3.6-5.1); Sodium* 127 mmol/L (135-149)
[2022-04-08 07:29] LABS: Bilirubin Direct* 0.1 mg/dL (0.0-0.5); Bilirubin Total* 2.2 mg/dL (0.1-1.5); Carbon Dioxide* 25 mmol/L (20-32); Creatinine* 0.8 mg/dL (0.5-1.5); Estimated Glomerular Filt Rate 90 ml/min; Total Protein* 6.1 g/dL (6.0-8.3)
[2022-04-08 07:30] LABS: Alanine Aminotransferase* 13 U/L (4-50); Alkaline Phosphatase* 54 U/L (40-150); Aspartate Amino Transferase* 17 U/L (12-35); Blood Urea Nitrogen* 14 mg/dL (7-30); Calcium* 8.7 mg/dL (8.4-10.6); Glucose* 104 mg/dL (60-115)
[2022-04-08 07:50] VITALS: PULSE 80
--- NOTE | 2022-04-08 08:53 | PM.DS1 ---
DS: Providers Provider Date Seen: 04/08/22 Date of admission: 04/07/22 08:22 Primary care physician: Malcolm Coleman MD Admitting Clinician: Paco Hairston MD Attending Physician on discharge: Paco Hairston MD Date of Discharge: 04/08/22 DS: Diagnosis Discharge Diagnosis (1) Hyponatremia: Status: Acute Problem details: Probably due to SSRI plus hydrochlorothiazide. At baseline is borderline hyponatremic chronically probably due to hydrochlorothiazide (2) Hypertension: Status: Acute Problem details: Blood pressures consistently mildly elevated. Outpatient followup (3) Syncope: Status: Acute Problem details: No recurrent symptoms during hospital stay. Consistently elevated blood pressures and no orthostatic hypotension (4) Hyperbilirubinemia: Status: Acute Problem details: Chronic, suspected [place] DS: Summary Hospital Course Hospital Course: 81-year-old male admitted to the hospital after a couple falls at home, possibly with syncope. Time of admission he had a normal evaluation for a head injury and treatment for a lip laceration. He was found to have a serum sodium of 122. He was placed on a fluid restriction, SSRI and hydrochlorothiazide were discontinued. He was given torsemide [address] of hydrochlorothiazide. Sodium improved to 127 this morning. Status at Discharge Functional status at discharge: independent ambulation Overall status at discharge: patient is back to baseline Time Spent with Patient Time attestation: Total time spent providing and/or coordinating discharge services: Time spent: Greater than 30 minutes Exam Narrative: Exam Narrative: He is alert and appears in no distress. Healing lip laceration. Head is without evidence of trauma. Respirations are clear to auscultation. Cardiovascular: S1, S2, regular rate and rhythm. Abdomen: Bowel sounds active. Abdomen is soft without tenderness or mass. Extremities without edema. Const: Vital Signs, click to edit/add: Vital Signs - 24 hr 04/07/22 10:00 04/07/22 11:00 04/07/22 15:00 Temperature 98.3 F Pulse Rate Pulse Rate [Left A pical] 69 76 Pulse Rate [orthos tatic lying Apical ] 72 Pulse Rate [orthos tatic sitting Apic al] 73 Pulse Rate [orthos tatic standing Api steffen] 76 Respiratory Rate 18 18 Blood Pressure [Ri ght Arm] 146/68 H Blood Pressure [or thostatic lying Le ft Arm] 157/72 H Blood Pressure [or thostatic sitting Left Arm] 159/72 H Blood Pressure [or thostatic standing Left Arm] 164/78 H Pulse Oximetry 97 Oxygen Delivery Me thod Room Air 04/07/22 15:00 04/07/22 15:00 04/07/22 19:00 Temperature 98.3 F 98.3 F Pulse Rate 76 Pulse Rate [Left A pical] 76 76 Pulse Rate [orthos tatic lying Apical ] Pulse Rate [orthos tatic sitting Apic al] Pulse Rate [orthos tatic standing Api steffen] Respiratory Rate 18 18 Blood Pressure [Ri ght Arm] 148/74 H 154/74 H Blood Pressure [or thostatic lying Le ft Arm] Blood Pressure [or thostatic sitting Left Arm] Blood Pressure [or thostatic standing Left Arm] Pulse Oximetry 96 [facility] 04/07/22 23:00 04/07/22 23:00 04/07/22 23:00 Temperature 98.2 F Pulse Rate 63 Pulse Rate [Left A pical] 78 78 Pulse Rate [orthos tatic lying Apical ] Pulse Rate [orthos tatic sitting Apic al] Pulse Rate [orthos tatic standing Api steffen] Respiratory Rate 18 18 Blood Pressure [Ri ght Arm] 154/74 H Blood Pressure [or thostatic lying Le ft Arm] Blood Pressure [or thostatic sitting Left Arm] Blood Pressure [or thostatic standing Left Arm] Pulse Oximetry 97 [facility] 04/08/22 03:00 Temperature 98.4 F Pulse Rate Pulse Rate [Left A pical] 88 Pulse Rate [orthos tatic lying Apical ] Pulse Rate [orthos tatic sitting Apic al] Pulse Rate [orthos tatic standing Api steffen] Respiratory Rate 18 Blood Pressure [Ri ght Arm] 154/73 H Blood Pressure [or thostatic lying Le ft Arm] Blood Pressure [or thostatic sitting Left Arm] Blood Pressure [or thostatic standing Left Arm] Pulse Oximetry 97 [facility] Documenting provider has reviewed patient's vital signs: yes DS: Data Data Completed and Pending Labs on day of discharge: Labs from last 24 hours 04/08/22 04/07/22 06:27 15:18 Sodium 127 L 125 L Potassium 3.7 Chloride 94 L Carbon Dioxide 25 BUN 14 Creatinine 0.8 Estimated Creat Clear 56.00 Estimated GFR 90 Glucose 104 Calcium 8.7 Total Bilirubin 2.2 H Direct Bilirubin 0.1 AST 17 ALT 13 Alkaline Phosphatase 54 Total Protein 6.1 Albumin 3.8 Discharge Plan Discharge Disposition: Home, Self-Care Date of Admission: 04/07/22 08:22 Attending Provider on Discharge: Paco Hairston Primary Care Provider: Malcolm Coleman Condition: Improved Anticipated Discharge Date/Time: 04/08/22 10:00 Discharge Medications: New potassium chloride 10 mEq Capsule, Extended Release 10 meq PO DAILY Qty: 30 0RF torsemide 5 mg Tablet 5 mg PO DAILY Qty: 30 0RF lisinopril 10 mg Tablet 10 mg PO DAILY Qty: 30 0RF Continued tamsulosin 0.4 mg capsule 0.4 mg PO DAILY cholecalciferol (vitamin D3) [Vitamin D3] 25 mcg (1,000 unit) tablet 1,000 unit PO DAILY Discontinued lisinopril-hydrochlorothiazide 10-12.5 mg tablet 1 tab PO DAILY Label Comments: TAKE ONE TABLET BY MOUTH ONE TIME DAILY escitalopram oxalate 5 mg tablet 5 mg PO DAILY Label Comments: Has been taking for 7 days. Discharge Orders: Discharge Order (Routine); Ordered 04/08/22 Ordered By: Paco Hairston Activity Level: No Restrictions Diet Detail: You have no restrictions on your diet. You may eat reasonable amounts of salt and he may drink fluid to meet your thirst. Do not drink extra fluid or water unless you are thirsty. Follow Up Appointments: Malcolm Coleman MD [Primary Care Provider] - (Appointment in 5 or 6 days. Lab test to include basic metabolic panel at that time) Forms: [employer] Info Instructions
[2022-04-08] MEDS: TAMSULOSIN HCL 0.4 MG CAPSULE PO (09:15)
[2022-04-08] MEDS: lisinopriL 10 MG TABLET PO (09:16)
[2022-04-08] MEDS: POTASSIUM CHLORIDE 10 MEQ CAPSULE ER PO (09:16)
[2022-04-08] MEDS: TORSEMIDE 5 MG TABLET PO (09:16)
--- NOTE | 2022-04-08 12:10 | PC.NURSE ---
Pt eval by Dr. Hairston and myself this am. Mildly forgetful but reorients easily. Pt verbalized understanding of d/c diagnosis, new prescriptions, home meds, f/up appts and sx to report urgently. Dtr Elsi updated on pt's medications, f/up appt and sx to report when she arrived to transport pt home. D/C via W/C with personal belongings to own home @ 11:32 with dtr as transportation.
== END 2022-04-08 11:30 | disposition home or self-care (01) | DRG 641 ==
LOC: ED 15:18 → MEDSURG 16:57
PROVIDERS: Family Medicine; Admitting Provider Family Medicine; Emergency Provider Family Medicine; PCP Family Medicine; Visit Provider Family Medicine
DX: E87.1 Hypo-osmolality and hyponatremia (principal); R55 Syncope and collapse; S01.511A Laceration without foreign body of lip, initial encounter; W19.XXXA Unspecified fall, initial encounter; Y93.G1 Activity, food preparation and clean up; Y92.010 Kitchen of single-family (private) house as the place of occurrence of the external cause; I10 Essential (primary) hypertension; F41.9 Anxiety disorder, unspecified; N40.0 Benign prostatic hyperplasia without lower urinary tract symptoms; K21.9 Gastro-esophageal reflux disease without esophagitis; E80.4 Gilbert syndrome
CPT/HCPCS: 36415; 70450; 80048; 80076; 81001; 82077; 83605; 84295; 84443; 84484; 85025; 85651; 86140; 87086; 87635; 93005; 97116; 97161; 99285; G0378; A9270; J7030

== ENCOUNTER 2022-04-09 11:23 | Inpatient (IN) | payer OTHER, SELFPAY ==
[2022-04-09 12:26] VITALS: BP 174/78; PULSE 71; RESP 18; TEMP 36.1; O2SAT 97; BMI 24.4
[2022-04-09 13:39] LABS: Basophils Absolute Auto 0.03 K/uL (0.00-0.30); Basophils Percent Auto 0.4 % (0.0-3.0); Eosinophils Absolute Auto 0.03 K/uL (0.00-0.50); Eosinophils Percent Auto 0.4 % (0.0-7.0); Hematocrit 40.7 % (37.0-53.0); Hemoglobin* 14.5 gm/dL (13.5-17.5); Immature Granulocytes Abs Auto 0.04 K/uL (0.00-0.30); Lymphocytes Percent Auto 9.9 % (20-44); Mean Corpuscular HGB Conc 36 gm/dL (32-36); Mean Corpuscular Hemoglobin 31 pg (26-34); Mean Corpuscular Volume 87 fL (80-100); Monocytes Percent Auto 10.6 % (0.0-11.0); Neutrophils Percent Auto 78.1 % (42.0-72.0); Platelet Count* 218 K/uL (140-440); RDW Coefficient of Variation % 12.1 % (11.5-15.5); Red Blood Count 4.68 m/uL (4.30-5.90); White Blood Count* 6.68 K/uL (4.50-11.00)
[2022-04-09 13:43] LABS: Slide Review Reflex No
[2022-04-09 13:54] LABS: Albumin* 4.5 g/dL (3.3-5.0)
[2022-04-09 13:55] LABS: Chloride* 94 mmol/L (96-114); Sodium* 128 mmol/L (135-149)
[2022-04-09 13:57] LABS: Alanine Aminotransferase* 13 U/L (4-50); Alkaline Phosphatase* 67 U/L (40-150); Aspartate Amino Transferase* 17 U/L (12-35); Bilirubin Total* 3.2 mg/dL (0.1-1.5); Blood Urea Nitrogen* 13 mg/dL (7-30); Carbon Dioxide* 25 mmol/L (20-32); Creatinine* 0.7 mg/dL (0.5-1.5); Estimated Glomerular Filt Rate 94 ml/min; Glucose* 111 mg/dL (60-115); Total Protein* 6.5 g/dL (6.0-8.3)
[2022-04-09 13:58] LABS: Magnesium* 1.9 mg/dL (1.5-2.6)
[2022-04-09 13:59] LABS: Acetaminophen* < 10.0 ug/mL (10.0-30.0); Ethanol* < 0.01 % (0.01-0.03); Salicylate* < 1.0 mg/dL (1.0-10)
--- NOTE | 2022-04-09 14:01 | ED.GENADULT ---
HPI - General Adult General Date Seen: 04/09/22 Chief complaint: Altered Mental Status Stated complaint: Confused Time Seen by Provider: 04/09/22 12:35 Source: patient, family (Daughter is present), RN notes reviewed, old records reviewed and other (Spoke with Dr. Hairston) Mode of arrival: ambulatory Limitations: no limitations History of Present Illness HPI narrative: Patient presents with his daughter whom is concerned about hallucinations. Marleny is a 81-year-old male that was recently hospitalized for hyponatremia. His Lexapro was stopped, has not been on it for 2 days now per report. His hydrochlorothiazide was also stopped due to the hyponatremia. Per Dr. Hairston his sodium was 122 on admission and on discharge it was 127. I believe he does suffer from some chronic hyponatremia on review of the records. He was hospitalized in October of 2021 with an acute psychosis. Reportedly was on an antipsychotic which did help. His daughter notes that yesterday he hit the buttons on his phone dispatched [facility]. He started to become quite agitated in concerned. On talking to him today he basically has nonsensical speech and is articulating quite well but is basically talking nonsensically. He does not seem to be aware that the content of his thoughts and speech really do not make sense to us. Per his daughter he has been fixated on a nuclear wore coming in that he has caused it. When he set off the emergency services yesterday, he became quite agitated and was thinking that were taking him away. His daughter came over and that is when she really started to notice his change in mentation. He just was released from our hospital yesterday for hyponatremia. Related Data Home Medications Medication Instructions Recorded Confirmed cholecalciferol (vitamin D3) 25 1,000 unit PO DAILY 04/06/22 04/06/22 mcg (1,000 unit) tablet (Vitamin D3) tamsulosin 0.4 mg capsule 0.4 mg PO DAILY 04/06/22 04/06/22 Previous Rx's Medication Instructions Recorded lisinopril 10 mg tablet 10 mg PO DAILY #30 tabs 04/08/22 potassium chloride 10 mEq 10 meq PO DAILY #30 caps 04/08/22 capsule,extended release torsemide 5 mg tablet 5 mg PO DAILY #30 tabs 04/08/22 Allergies Allergy/AdvReac Type Severity Reaction Status Date / Time No Known Drug Allergies Allergy Verified 04/06/22 12:40 Review of Systems Status of ROS: Reports: unobtainable due to mental status [facility] Medical History (Updated 04/09/22 @ 19:22 by Shannan Teran MD) Acid reflux Anxiety BPH (benign prostatic hyperplasia) Hearing loss of both ears Hypertension Hyponatremia 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 Denies recreational drug use. Highest level of school completed/degree received: high school graduate Smoking Status: Former smoker Do you use any of these nicotine containing products: None Second hand tobacco smoke exposure: No How often do you have a drink containing alcohol: 4 or more times a week Alcohol type: wine How many standard drinks containing alcohol do you have on a typical day: 1 or 2 How often do you have six or more drinks on one occasion: Never AUDIT-C Alcohol total score: 4 Non-prescribed substance use: denies use Caffeine: Yes (2 cups daily) service: Yes Exam Const: Vital Signs, click to edit/add: Vital Signs - 24 hr 04/09/22 12:26 04/09/22 15:30 Temperature 97.0 F L Pulse Rate [Right Pulse Oximeter] 71 81 Respiratory Rate 18 16 Blood Pressure [Ri ght Upper Arm] 174/78 H 187/83 H Pulse Oximetry 97 98 Oxygen Delivery Me thod Room Air Room Air Documenting provider has reviewed patient's vital signs: yes Common normals: no apparent distress, no limitations, healthy appearing and alert General appearance: cooperative, comfortable and well kempt Nutritional appearance: thin HENMT: Common normals: normocephalic, head/scalp atraumatic, hearing grossly normal bilaterally, external ears normal, external nose normal, nasal mucous membranes and turbinates normal, moist oral mucous membranes, oropharynx normal and dentition normal Head and scalp: normocephalic and atraumatic Nose: external nose normal and nasal mucous membranes and turbinates normal External ear: external ears normal Eye: Common normals: PERRL, EOMs intact bilaterally, conjunctivae normal and no scleral icterus Conjunctiva: conjunctiva(e) normal Pupil: PERRL Neck & C-Spine: Common normals: full ROM, no lymphadenopathy, supple, no meningeal signs, no JVD and thyroid normal Thyroid: thyroid normal Lymph: Lymphatic: no lymphadenopathy noted Chest: Common normals: inspection of chest normal and palpation of chest normal Resp: Common normals: normal respiratory effort, no retractions, no use of accessory muscles and clear to auscultation bilaterally Auscultation: clear to auscultation bilaterally Cardio: Common normals: no JVD, regular rate, regular rhythm, S1 normal heart sound, S2 normal heart sound, no gallops, no clicks and no murmurs Rate: regular rate Rhythm: regular rhythm Heart sounds: S1 normal and S2 normal GI: Common normals: Normal to inspection, nondistended, normoactive bowel sounds present, soft to palpation, non-tender, no hepatosplenomegaly and no masses Palpation: soft and no hepatosplenomegaly Extremity: Common normals: normal to inspection, full ROM, normal capillary refill, no joint enlargement, no clubbing, cyanosis or edema, no calf tenderness and no pedal edema Neuro: Common normals: CN's II-XII intact bilaterally, moves all extremities, no focal motor deficits, no sensory deficits noted and gait normal Sensorium/orientation: alert Meningeal signs: no meningeal signs Other: He has very succinct speech but is blinking words and phrases together that are nonsensical. He does not seem to have any insight that his speech is not making any sense to those around him. He is calm, cooperative and alert. Psych: Appearance: well kempt Course Course Hospital Course: As stated above, have talked to Dr. Hairston regarding this patient as he was just discharged. Will make sure electrolytes including sodium are not abnormal. I did also review his last visit in October for psychosis where he saw Dr. Aguayo, head CT was done at that time. I see no prior MRI of his head. IA will be considering doing MRI imaging for further workup of this gentleman's hallucinations and altered speech if there is no laboratory explanation for this. He did have another head CT going into the hospital recently. I do not feel a head CT will be as beneficial in delineated current pathology as an MRI. Reevaluation(s) Reevaluation #1: José Miguel our biomedical equipment technician came to get me as when he went to get the patient for his brain MRI, found him on the floor. Patient was lying face down on the floor talking about red light. We were able to roll him over and eventually have him get up and sit in a wheelchair. Initially he would not stand on his own but we were able to prompt him to do so after little Coke seen. He talked about blue light and 1 point. In then after 2 standing he would not sit in a wheelchair. Again with some coaxing he sat in a wheelchair. He was repeating [id number]. Then he was repeating read multiple times. His daughter seems to think that he is in a nuclear war and a fight. Before we got in she stated he was acting like he was almost Army crawling on the ground. I did order 2.5 mg IV Zyprexa so that we will be able to get our brain MRI. He is obviously psychotic, do want to rule out other underlying possible causes with a brain MRI before looking for psychiatric placement however. Time: 16:39 Reevaluation #2: Reviewed the MRI findings with patient and his daughter. There are some mild degenerative changes but certainly no evidence of any stroke or mass. Marleny is now able to talk to me, is making sense. His daughter notes that he is definitely better with the Zyprexa on board but she still feels that he is not completely back to his baseline. We are proceeding with telehealth consultation. I do think we may need to consider hospitalization for stabilization of his condition and appropriate medication management. Time: 18:20 Vital Signs Vital signs: Initial Vital Signs Temperature 97.0 F L 04/09/22 12:26 Temperature Source Temporal Artery Scan 04/09/22 12:26 Pulse Rate 71 04/09/22 12:26 Respiratory Rate 18 04/09/22 12:26 Blood Pressure 174/78 H 04/09/22 12:26 Blood Pressure Mean 110 04/09/22 12:26 Blood Pressure Position Sitting 04/09/22 12:26 Pulse Oximetry 97 04/09/22 12:26 Oxygen Delivery Method 04/09/22 12:26 Vital Signs Temperature 97.0 F L 04/09/22 12:26 Pulse Rate 71 04/09/22 12:26 Respiratory Rate 18 04/09/22 12:26 Blood Pressure 174/78 H 04/09/22 12:26 Pulse Oximetry 97 04/09/22 12:26 Oxygen Delivery Method 04/09/22 12:26 Temperature 97.0 F L 04/09/22 12:26 Pulse Rate 81 04/09/22 15:30 Respiratory Rate 16 04/09/22 15:30 Blood Pressure 187/83 H 04/09/22 15:30 Pulse Oximetry 98 04/09/22 15:30 Oxygen Delivery Method 04/09/22 15:30 Medical Decision Making Lab Data Lab results reviewed: Yes I reviewed the patient's lab results Labs: Lab Results 04/09/22 04/09/22 04/09/22 Range/Units 12:54 13:25 13:25 WBC 6.68 (4.50-11.00) K/uL RBC 4.68 (4.30-5.90) m/uL Hgb 14.5 (13.5-17.5) gm/dL Hct 40.7 (37.0-53.0) % MCV 87 (80-100) fL MCH 31 (26-34) pg MCHC 36 (32-36) gm/dL RDW Coeff of Stanford 12.1 (11.5-15.5) % Plt Count 218 (140-440) K/uL Neut % (Auto) 78.1 H (42.0-72.0) % Lymph % (Auto) 9.9 L (20-44) % Grayson % (Auto) 10.6 (0.0-11.0) % Eos % (Auto) 0.4 (0.0-7.0) % Baso % (Auto) 0.4 (0.0-3.0) % Neut # (Auto) 5.20 (1.7-7.0) K/uL Lymph # (Auto) 0.70 L (0.90-2.90) K/uL Grayson # (Auto) 0.70 (0.00-0.90) K/UL Eos # (Auto) 0.03 (0.00-0.50) K/uL Baso # (Auto) 0.03 (0.00-0.30) K/uL Abs Immat Gran (auto) 0.04 (0.00-0.30) K/uL ESR 2 (2-15) mm/hr Sodium (135-149) mmol/L Potassium (3.6-5.1) mmol/L Chloride (96-114) mmol/L Carbon Dioxide (20-32) mmol/L BUN (7-30) mg/dL Creatinine (0.5-1.5) mg/dL Estimated Creat Clear Estimated GFR ml/min Glucose (60-115) mg/dL Calcium (8.4-10.6) mg/dL Magnesium (1.5-2.6) mg/dL Total Bilirubin (0.1-1.5) mg/dL AST (12-35) U/L ALT (4-50) U/L Alkaline Phosphatase (40-150) U/L Total Protein (6.0-8.3) g/dL Albumin (3.3-5.0) g/dL TSH (0.270-4.200) uIU/mL Salicylates (1.0-10) mg/dL Urine Opiates Screen Negative (Negative) Ur Oxycodone Screen Negative (Negative) Urine Methadone Screen Negative (Negative) Ur Propoxyphene Screen Negative (Negative) Acetaminophen (10.0-30.0) ug/mL Ur Barbiturates Screen Negative (Negative) U Tricyclic Antidepress Negative (Negative) Ur Phencyclidine Scrn Negative (Negative) Ur Amphetamines Screen Negative (Negative) U Methamphetamines Scrn Negative (Negative) U Benzodiazepines Scrn Negative (Negative) Urine Cocaine Screen Negative (Negative) U Marijuana (THC) Screen Negative (Negative) Ur Drug Screen Comment See Note Ethyl Alcohol (0.01-0.03) % SARS-CoV-2 (PCR) (Negative) 04/09/22 04/09/22 04/09/22 Range/Units 13:25 13:25 13:25 WBC (4.50-11.00) K/uL RBC (4.30-5.90) m/uL Hgb (13.5-17.5) gm/dL Hct (37.0-53.0) % MCV (80-100) fL MCH (26-34) pg MCHC (32-36) gm/dL RDW Coeff of Stanford (11.5-15.5) % Plt Count (140-440) K/uL Neut % (Auto) (42.0-72.0) % Lymph % (Auto) (20-44) % Grayson % (Auto) (0.0-11.0) % Eos % (Auto) (0.0-7.0) % Baso % (Auto) (0.0-3.0) % Neut # (Auto) (1.7-7.0) K/uL Lymph # (Auto) (0.90-2.90) K/uL Grayson # (Auto) (0.00-0.90) K/UL Eos # (Auto) (0.00-0.50) K/uL Baso # (Auto) (0.00-0.30) K/uL Abs Immat Gran (auto) (0.00-0.30) K/uL ESR (2-15) mm/hr Sodium 128 L (135-149) mmol/L Potassium 4.0 (3.6-5.1) mmol/L Chloride 94 L (96-114) mmol/L Carbon Dioxide 25 (20-32) mmol/L BUN 13 (7-30) mg/dL Creatinine 0.7 (0.5-1.5) mg/dL Estimated Creat Clear 56.00 Estimated GFR 94 ml/min Glucose 111 (60-115) mg/dL Calcium 9.0 (8.4-10.6) mg/dL Magnesium 1.9 (1.5-2.6) mg/dL Total Bilirubin 3.2 H (0.1-1.5) mg/dL AST 17 (12-35) U/L ALT 13 (4-50) U/L Alkaline Phosphatase 67 (40-150) U/L Total Protein 6.5 (6.0-8.3) g/dL Albumin 4.5 (3.3-5.0) g/dL TSH 2.220 (0.270-4.200) uIU/mL Salicylates < 1.0 L (1.0-10) mg/dL Urine Opiates Screen (Negative) Ur Oxycodone Screen (Negative) Urine Methadone Screen (Negative) Ur Propoxyphene Screen (Negative) Acetaminophen < 10.0 L (10.0-30.0) ug/mL Ur Barbiturates Screen (Negative) U Tricyclic Antidepress (Negative) Ur Phencyclidine Scrn (Negative) Ur Amphetamines Screen (Negative) U Methamphetamines Scrn (Negative) U Benzodiazepines Scrn (Negative) Urine Cocaine Screen (Negative) U Marijuana (THC) Screen (Negative) Ur Drug Screen Comment Ethyl Alcohol < 0.01 L (0.01-0.03) % SARS-CoV-2 (PCR) Negative SARS-CoV-2 (Negative) Imaging Data MRI - head: Attestation: I have reviewed the pertinent imaging results. Radiologist's impression: Patient: MARLENY PRUITT Facility:?[facility] [place] Patient ID:?[id number] Site Patient ID:?[id number]. Site :?[id number] Study:?MRI Head W/O-04/09/2022 5:41:27 PM Ordering Physician:?Parul Campbell Final Report: Indication: ALTERED MENTAL STATUS,SPEECH DIFFICULTIES Technique: Noncontrast sagittal T1 weighted, axial T2 fast spin echo, FLAIR, and diffusion weighted images of the head. Comparison: 04/06/22 CT Findings: Examination is limited due to motion artifact. Mild generalized parenchymal volume loss. No hydrocephalus. No evidence of suspicious intra- or extra-axial fluid collections. No regions of restricted diffusion. Midline structures are centrally located. Incidental left retrocerebellar arachnoid cyst. Minimal mucosal thickening in the left maxillary sinus. Mild mucosal thickening in the ethmoid air cells. Thinning of the ocular lenses likely due to prior cataract surgery changes. Impression: 1. No radiographic evidence of acute intracranial abnormalities. 2. Mild cerebral volume loss. 3. Incidental left retrocerebellar arachnoid cyst. Dictated by Marleny Forbes MD @ 04/09/2022 6:05:26 PM (Electronic Signature) Discharge Plan Discharge Clinical Impression: Acute psychosis Prescriptions: No Action tamsulosin 0.4 mg capsule 0.4 mg PO DAILY cholecalciferol (vitamin D3) [Vitamin D3] 25 mcg (1,000 unit) tablet 1,000 unit PO DAILY potassium chloride 10 mEq Capsule, Extended Release 10 meq PO DAILY Qty: 30 0RF torsemide 5 mg Tablet 5 mg PO DAILY Qty: 30 0RF lisinopril 10 mg Tablet 10 mg PO DAILY Qty: 30 0RF Follow Up/Referrals: Malcolm Coleman MD [Primary Care Provider] -
--- NOTE | 2022-04-09 14:11 | CRLHL7_ITS ---
For Patients: As a result of the Century Cures Act, medical imaging exams and procedure reports are released immediately into your electronic medical record. You may view this report before your referring provider. If you have questions, please contact your health care provider. Indication: ALTERED MENTAL STATUS,SPEECH DIFFICULTIES Technique: Noncontrast sagittal T1 weighted, axial T2 fast spin echo, FLAIR, and diffusion weighted images of the head. Comparison: 04/06/22 CT Findings: Examination is limited due to motion artifact. Mild generalized parenchymal volume loss. No hydrocephalus. No evidence of suspicious intra- or extra-axial fluid collections. No regions of restricted diffusion. Midline structures are centrally located. Incidental left retrocerebellar arachnoid cyst. Minimal mucosal thickening in the left maxillary sinus. Mild mucosal thickening in the ethmoid air cells. Thinning of the ocular lenses likely due to prior cataract surgery changes. Impression: 1. No radiographic evidence of acute intracranial abnormalities. 2. Mild cerebral volume loss. 3. Incidental left retrocerebellar arachnoid cyst. Dictated by Hermes Forbes MD @ 04/09/2022 6:05:26 PM (Electronically Signed)
[2022-04-09 14:50] LABS: SARS PCR* Negative SARS-CoV-2 (Negative)
[2022-04-09 14:53] LABS: Erythrocyte SedimentationRate* 2 mm/hr (2-15)
[2022-04-09 15:11] LABS: Amphetamine Screen Urine Negative (Negative); Barbiturate Screen Urine Negative (Negative); Benzodiazepines Screen Urine Negative (Negative); Cannabinoid Screen Urine Negative (Negative); Cocaine Screen Urine Negative (Negative); Methadone Screen Urine Negative (Negative); Methamphetamines Screen Urine Negative (Negative); Opiate Screen Urine Negative (Negative); Oxycodone Screen Urine Negative (Negative); Phencyclidine Screen Urine Negative (Negative); Tricyclic Antidepressant Urine Negative (Negative)
[2022-04-09 15:30] VITALS: BP 187/83; PULSE 81; RESP 16; O2SAT 98
[2022-04-09] MEDS: OLANZapine 5 MG/ML inj 2.5 MG IVP (16:30)
--- NOTE | 2022-04-09 16:35 | ED.NURSE ---
technician preventative medicine arrived to take patient. Patient was in room with daughter and was laying on floor waiting for nuclear war. MD and RN to bedside. Patient was helped to wheelchair and verbal order given for 2.5mg IV zyprexa. This was given and patient proceded to MRI.
--- NOTE | 2022-04-09 22:15 | ED.NURSE ---
Daughter requested update on patient status. Reviewed recommendation for inpatient mental health bed and process. She requests something to help patient sleep. wrote for 1mg Atdavid.
[2022-04-09] MEDS: LORazepam 2 MG/ML inj 1 MG IV (22:19)
--- NOTE | 2022-04-09 23:00 | ED.NURSE ---
Patient now sleeping. Daughter is leaving for the night. Patient is on camera monitor for safety.
[2022-04-10] VITALS (8 sets, daily range): BP systolic 117–149; BP diastolic 56–72; PULSE 65–89; RESP 10–18; TEMP 35.8–36.8; O2SAT 97–99; BMI 23.3
--- NOTE | 2022-04-10 01:27 | ED.NURSE ---
Addendum entered by Marilia Snyder RN 04/10/22 02:00: [facility] called, reviewing patient. Original Note: Calls made for placement: [facility], no availability until 9AM, can call back after 9AM. [facility]: facility received pt info, will review. Will probably not be accepted until 04/10/22 day shift. [facility], no answer, will continue to call.
[2022-04-10 03:14] LABS: Sodium* 128 mmol/L (135-149)
--- NOTE | 2022-04-10 07:10 | ED.NURSE ---
Pt sleeping at this time. Up x1 at night to void via urinal, tolerated standing well unassisted. Keith HUNT declines d/t Sodium level <130. [facility] still reviewing. Report given to CALLI Posey.
--- NOTE | 2022-04-10 07:33 | W.ED.CHARTNO ---
ED Chart Note Chart Note Details Date: 04/10/22 Details: Received Mr. Paula at change of shift. Has been declined by psychiatric facilities at this point. Uneventful night. Did not require any further interventions/sleep aid other than lorazepam as given by prior provider. Reviewing again potential psychiatric placement with preference for geriatric psychiatric facility.
--- NOTE | 2022-04-10 07:38 | ED.NURSE ---
Called and followed up with [facility] on information that was faxed at [phone] this morning. Spoke with Chantel, charge nurse. States she received pt's information and will review at this time. Awaiting call back
--- NOTE | 2022-04-10 08:01 | ED.NURSE ---
Meal tray ordered for pt. No dietary restrictions per Dr Diaz.
--- NOTE | 2022-04-10 08:30 | ED.NURSE ---
Pt given meal tray
--- NOTE | 2022-04-10 09:15 | ED.NURSE ---
did vomit undigested food. approx 200 ml.
[2022-04-10] MEDS: POTASSIUM CHLORIDE 10 MEQ CAPSULE ER PO (09:30)
[2022-04-10] MEDS: TAMSULOSIN HCL 0.4 MG CAPSULE PO (09:30)
[2022-04-10] MEDS: TORSEMIDE 5 MG TABLET PO (09:31)
[2022-04-10] MEDS: lisinopriL 5 MG TABLET 10 MG PO (09:31)
[2022-04-10] MEDS: OMEPRAZOLE 20 MG CAPSULE DR PO (09:31)
[2022-04-10 09:39] LABS: Albumin* 4.7 g/dL (3.3-5.0); Chloride* 95 mmol/L (96-114)
[2022-04-10 09:40] LABS: Potassium* 4.2 mmol/L (3.6-5.1); Sodium* 130 mmol/L (135-149)
[2022-04-10 09:42] LABS: Alkaline Phosphatase* 65 U/L (40-150); Aspartate Amino Transferase* 19 U/L (12-35); Blood Urea Nitrogen* 13 mg/dL (7-30); Carbon Dioxide* 26 mmol/L (20-32); Creatinine* 0.8 mg/dL (0.5-1.5); Estimated Glomerular Filt Rate 90 ml/min; Total Protein* 7.3 g/dL (6.0-8.3)
[2022-04-10 09:43] LABS: Alanine Aminotransferase* 13 U/L (4-50); Calcium* 9.7 mg/dL (8.4-10.6); Glucose* 105 mg/dL (60-115)
--- NOTE | 2022-04-10 10:09 | ED.NURSE ---
Called and spoke with Giovana at [facility]. Stated they are still reviewing with their senior management team and they should call back in 30 min
--- NOTE | 2022-04-10 10:30 | ED.NURSE ---
Pt would like to know what is going on. Wants to go home. Explained that he would need to stay the night someplace and that nursing is attempting to find place.
--- NOTE | 2022-04-10 10:52 | ED.NURSE ---
[facility] declined pt.
--- NOTE | 2022-04-10 10:57 | ED.NURSE ---
Social work called to assist with finding placement.
--- NOTE | 2022-04-10 11:17 | ED.NURSE ---
Called [facility] [phone]. Currently at capacity, call back at noon.
--- NOTE | 2022-04-10 11:39 | W.PC.EDHO ---
Primary Language: Preferred Language: Orientation Status: [] Alert & Oriented [] Slight Confusion [] Known Dx Dementia Transfers By: [x] Assist of 1 [] Assist of 2 [] Lift Active Medications Generic Name Dose Route Start Last Admin Trade Name Donnellq PRN Reason Stop Dose Admin Lisinopril 10 mg 04/10/22 09:30 04/10/22 09:31 Lisinopril 5 Mg Tablet PO 10 mg DAILY JAKUB Administration Potassium Chloride 10 meq 04/10/22 09:00 04/10/22 09:30 Potassium Chloride 10 Meq Capsule Er PO 10 meq DAILY JAKUB Administration Tamsulosin HCl 0.4 mg 04/10/22 09:00 04/10/22 09:30 Tamsulosin Hcl 0.4 Mg Capsule PO 0.4 mg DAILY JAKUB Administration Torsemide 5 mg 04/10/22 09:00 04/10/22 09:31 Torsemide 5 Mg Tablet PO 5 mg DAILY JAKUB Administration Vitamin D 25 mcg 04/10/22 09:00 04/10/22 09:30 Cholecalciferol (Vitamin D3) 25 Mcg Tablet (1000 Unit) PO 25 mcg DAILY JAKUB Administration Discontinued Medications Generic Name Dose Route Start Last Admin Trade Name Juju PRN Reason Stop Dose Admin Lorazepam 1 mg 04/09/22 22:07 04/09/22 22:19 Lorazepam 2 Mg/Ml Inj IV 04/09/22 22:08 1 mg ONCE ONE Administration Olanzapine 2.5 mg 04/09/22 17:37 04/09/22 16:30 Olanzapine 5 Mg/Ml Inj IVP 04/09/22 17:38 2.5 mg ONCE ONE Administration Omeprazole 20 mg 04/10/22 08:50 04/10/22 09:31 Omeprazole [address] PO 04/10/22 08:51 20 mg ONCE ONE Administration Description of Symptoms ED Triage Present Problem pt here with daughter, has been having issues with Description low sodium and released from med surg yesterday, pt is having some issues with paranoia and racing thoughts per daughter, fixated on a nuclear war coming and he caused it, pt lives with his , denies weakness, a lot of recent med changes per his daughter ED Triage Date of Onset of 04/09/22 Symptoms IV Insertion/Site Date of IV Line Insertion [ 04/09/22 Left Antecubital] Oxygen Administration Pulse Oximetry 99 Pulse Oximetry 97 Pulse Oximetry 98 Pulse Oximetry 97 Oxygen Delivery Method Room Air Oxygen Delivery Method Room Air Oxygen Delivery Method Room Air Oxygen Delivery Method Room Air
[2022-04-10] MEDS: OLANZapine 5 MG/ML inj 2.5 MG IVP (11:54)
[2022-04-10 13:34] LABS: Bilirubin Direct* 0.6 mg/dL (0.0-0.5)
--- NOTE | 2022-04-10 13:58 | PC.SOCIAL ---
Social work: Per MD order for in-pt mental health placement, called [facility] in [place] [phone], and spoke with Odalys in admissions who requested information be faxed. Faxed requested information to [facility] at fax [phone]. Awaiting call back with decision on admit.
--- NOTE | 2022-04-10 15:15 | ED.NURSE ---
[facility] declined. They do not accept pt's insurance.
--- NOTE | 2022-04-10 17:04 | P.IMHP_ITS ---
Hospitalist- H&P: [facility] History of Present Illness Time Seen by Provider: 16:00 Date Seen: 04/10/22 Chief complaint: Confused Narrative: Hermes Paula is a 81 year old man who presents with acute confusion. Patient had been hospitalized for about 2 days recently with hyponatremia, initial sodium 122, sodium 127 at discharge. Known to have chronic hyponatremia from previous records. On current presentation serum sodium is up to 130. During the course of that particular hospitalization his hydrochlorothiazide and his escitalopram (Lexapro) were stopped due to concerns of these medicines contributing to his hyponatremia. Throughout this hospitalization there was no inkling or indication of an evolving psychosis. The day after he was discharged from our hospital, while in his home he pressed the emergency button on his cellphone device summon him emergency personnel to his home. He was quite agitated. Was speaking with his daughter at that time about a sense that he had caused a nuclear disaster. When the emergency department physician attempted to speak with him, she notes that his speech was articulate but nonsensical. Patient seemed unaware that his thoughts and speech were nonsensical. Patient has been in our hospital emergency department for over 24 hours now. A couple of doses of olanzapine (Zyprexa) 2.5 mg IV were administered with excellent results both times. The fax of the medicine were very rapid. The duration of the effects of the medicine lasted a few hours and then seem to wear off. Emergency department personnel attempted transferring patient to inpatient psychiatric unit in [place] but or unable to find an available bed. Patient is being admitted to our hospital now for ongoing cares in this regard. Review of Systems Status of ROS: Reports: 10 or more systems reviewed and unremarkable except as noted in History and below Narrative: Patient and daughter deny any focal motor neurologic deficits. No fevers, rigors, diaphoresis. No recent febrile illnesses. No recent travel or trauma. Patient denies the use of any ldxa-stf-oftadia medications. States he has not drank alcohol for a number of days. May drink alcohol 1-4 times per week, 1-2 drinks per day at the very most. Has never had alcohol withdrawal symptoms. Does not use any other street or recreational drugs. Patient and daughter note that this past October he was admitted and treated in an inpatient setting for a psychotic presentation. Upon discharge from that particular hospitalization for a short period of time he was on an atypical antipsychotic. He is no longer on that medicine. Previously treated with mood stabilizing medication escitalopram (Lexapro). This medicine was stopped a few days ago during his recent hospitalization at [facility] when he was admitted and treated for hyponatremia. Denies angina, anginal equivalent, syncope, nausea, vomiting, diarrhea, constipation, palpitations, dyspnea at rest, paroxysmal nocturnal dyspnea, orthopnea, dyspnea with exertion, abdominal pain, dyspepsia, dysphagia, odynophagia. Denies cold or heat intolerance, hypoglycemic episodes. Denies night sweats or weight loss. Denies dysuria, urgency, frequency, hematuria. Denies cough or facial pressure or pain. Denies myalgias or arthralgias. Denies edema. 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 Denies recreational drug use. Highest level of school completed/degree received: high school graduate Smoking Status: Former smoker Do you use any of these nicotine containing products: None Second hand tobacco smoke exposure: No How often do you have a drink containing alcohol: 4 or more times a week Alcohol type: wine How many standard drinks containing alcohol do you have on a typical day: 1 or 2 How often do you have six or more drinks on one occasion: Never AUDIT-C Alcohol total score: 4 Non-prescribed substance use: denies use Caffeine: Yes (2 cups daily) service: Yes Meds Home Medications and Allergies Home Medications Medication Instructions Recorded Confirmed Type cholecalciferol (vitamin D3) 25 1,000 unit PO DAILY 04/06/22 04/06/22 History mcg (1,000 unit) tablet (Vitamin D3) tamsulosin 0.4 mg capsule 0.4 mg PO DAILY 04/06/22 04/06/22 History Allergies Allergy/AdvReac Type Severity Reaction Status Date / Time No Known Drug Allergies Allergy Verified 04/06/22 12:40 Exam Narrative: Exam Narrative: When I assessed him he is in no acute distress. He is awake, alert, oriented to self, place, and time. Not entirely aware of his situation. Has some recollection of what brought him to the hospital but very minimal. It seems he is able to repeat with others have told him and he does not recall details at all. Appears comfortable at this time. Articulate cooperative. Mood and affect are congruent. Hearing is preserved with hearing aids in place. External auditory canals and tympanic membranes are normal bilaterally. Midline nasal septum. Normal nasal mucosa. Dentition in good repair. Oropharynx benign. A hint of scleral icterus. Vision is preserved. Extraocular muscles are intact. Pupils are equa lly round and reactive to light and accommodation. Skin is intact. No jaundice. No petechiae. No rashes. Is suntanned, and he is outdoors a lot. Be sides working on his lawn he also enjoys golfing. Midline trachea normal thyroid. No JVD or hepatojugular reflux. No carotid bruits. Neck is supple. No adenopathy in the pre or postauricular chains, anterior-posterior cervical chains, supra or infraclavicular fossa or axilla bilaterally. Lungs entirely clear to auscultation without wheezing, rhonchi, or rales. Heart tones with regular rhythm, normal S1-S2, without murmur, gallop, or rub. Abdomen with active bowel sounds, soft, nontender. Thin abdomen. No organomegaly or masses. Extremities without edema. No focal motor neurologic deficits. No tremor, asterixis, or ataxia. Inde pendent transfer, station, and gait. Cranial nerves 3-12 grossly normal save his chronic symmetrically decreased hearing bilaterally. Const: Vital Signs, click to edit/add: Vital Signs - 24 hr 04/10/22 02:03 04/10/22 02:00 04/10/22 07:54 Temperature 98.2 F Pulse Rate [Right Pulse Oximeter] 65 77 Respiratory Rate 10 L 16 Blood Pressure [Ri t Upper Arm] 117/58 L 149/72 H Pulse Oximetry 97 Oxygen Delivery Me thod Room Air 04/10/22 09:34 04/10/22 15:03 Temperature 97.5 F L Pulse Rate [Right Pulse Oximeter] 88 89 Respiratory Rate 16 18 Blood Pressure [Ri t Upper Arm] 131/67 121/56 L Pulse Oximetry 99 99 Oxygen Delivery Me thod Room Air Room Air Documenting provider has reviewed patient's vital signs: yes Hospitalist - H&P: Result Labs Labs: BMP 04/10/22 04/10/22 02:55 09:18 Sodium 128 L 130 L Potassium 4.2 Chloride 95 L Carbon Dioxide 26 BUN 13 Creatinine 0.8 Glucose 105 Calcium 9.7 Liver Function 04/09/22 04/10/22 Range/Units 13:25 09:18 Total Bilirubin 4.0 H (0.1-1.5) mg/dL Direct Bilirubin Cancelled 0.6 H AST 19 (12-35) U/L ALT 13 (4-50) U/L Alkaline Phosphatase 65 (40-150) U/L Albumin 4.7 (3.3-5.0) g/dL Assessment and Plan Assessment and plan (1) Acute psychosis: Status: Acute Assessment and Plan: Etiology not yet determined. This will certainly warrant additional outpatient neuropsychiatric assessments. (2) Hyponatremia: Problem comment: Probably due to SSRI plus hydrochlorothiazide. At baseline is borderline hyponatremic chronically probably due to hydrochlorothiazide Status: Acute (3) Hyperbilirubinemia: Problem comment: Chronic, suspected [place] Status: Acute (4) Hypertension: Problem comment: Blood pressures consistently mildly elevated. 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 Status: Acute (7) Hearing loss of both ears: Problem comment: Uses hearing aids Status: Acute (8) BPH (benign prostatic hyperplasia): Status: Acute Plan 1. Reviewed impression with patient and daughter. Answered their questions. 2. Recommended admission to the hospital. Although he responded to IV Zyprexa emergency department, he is not on a stable regimen of an atypical antipsychotic at all. Efforts have been made to transfer patient to an inpatient psychiatric care unit but none are available across the [facility] at this time. 3. Initiate quetiapine (Seroquel) 25 mg orally twice daily and monitor closely. Continue to use olanzapine (Zyprexa) p.r.n. as needed. 4. Continue to monitor labs 5. Will check a VDRL for possible syphilis as well as erythrocyte sedimentation rate for possible vasculitis. Will also check a TSH. 6. Will ask Occupational therapy to perform a [place] cognitive assessment test for baseline purposes. 7. Patient will need outpatient neuropsychiatric assessment hereafter. 8. May still need to attempt transferring to another institution that has inpatient psychiatric services should his condition not improve or worsen. 9. Patient and daughter agreeable to above stated plans and recommendations. 10. Continue with other supportive efforts.
--- NOTE | 2022-04-10 17:12 | PC.SOCIAL ---
Social work: Summary of attempts made for placement in geriatric in-pt mental health facility: 1. [facility] evaluated and refused pt due to Na<130. 2. [facility] in [place] - refused pt due to insurance not being in network. 3. [facility] - refused pt due to insurance not being in network. 4. [facility] - declined pt, reason unknown. 5. [facility] - information faxed and awaiting decision on admit. There are currently no other facilities with beds available in the [facility]. RN and House Supervisors to continue to work on in-pr mental health placement as needed.
--- NOTE | 2022-04-10 19:20 | PC.NURSE ---
shift note: vss stable. pt up indept in room. pt denies pain. IV to LT AC intact. pt admit to floor @ 1600
[2022-04-10] MEDS: QUETIAPINE 25 MG TABLET PO (20:17)
[2022-04-11] VITALS (8 sets, daily range): BP systolic 122–157; BP diastolic 58–70; PULSE 70–94; RESP 18; TEMP 35.9–36.6; O2SAT 95–97
--- NOTE | 2022-04-11 05:33 | PC.NURSE ---
Shift note: The pt has been pleasant and cooperative. He has been denying chest pain and short of breath. He said that he talked to his Spouse on the phone last night. He is ambulating in the room independently . He has been sleeping well throughout the night. He is alert and oriented to self, place, and time; the pt appeared forgetful occasionally. No signs of agitation noted throughout the shift.
[2022-04-11 06:57] LABS: Hemoglobin* 13.1 gm/dL (13.5-17.5); Mean Corpuscular HGB Conc 35 gm/dL (32-36); Mean Corpuscular Hemoglobin 31 pg (26-34); Mean Corpuscular Volume 89 fL (80-100); Platelet Count* 197 K/uL (140-440); Red Blood Count 4.26 m/uL (4.30-5.90)
[2022-04-11 07:04] LABS: Slide Review Reflex No
[2022-04-11 07:09] LABS: Albumin* 3.5 g/dL (3.3-5.0); Chloride* 98 mmol/L (96-114)
--- NOTE | 2022-04-11 07:09 | PM.IMPN1 ---
Progress Note: A&P Assessment and plan (1) Acute psychosis: Status: Acute Assessment and Plan: Continue Seroquel 50 mg b.i.d., p.r.n. olanzapine. Scheduled melatonin and Celexa. I will look for a safe discharge plan verses transfer to Geriatric Psychiatry. VDRL, still pending. ESR and TSH reassuring. (2) Hyponatremia: Status: Acute Assessment and Plan: Trending. Improving. Hold hydrochlorothiazide. I am starting a low-dose SSRI, Celexa. Will see if this affects his sodium levels. (3) Drop in hemoglobin: Status: Acute Assessment and Plan: He had ketones and was likely overall volume depleted. I can trend this. (4) Hypertension: Problem details: Blood pressures consistently mildly elevated. Outpatient followup Status: Acute (5) Hearing loss of both ears: Problem details: Uses hearing aids Status: Acute (6) BPH (benign prostatic hyperplasia): Status: Acute Assessment and Plan: Continue home meds Subjective Date Seen: 04/11/22 Interval history: Daily Progress Note - Hospital Medicine Day #:2 CC: Disordered thinking, hyponatremia NIGHT UPDATES FROM STAFF & MED, LAB, IMAGING UPDATES Blood pressure 151/66. Afebrile. Pulse 70. Respirations 18. On room air without hypoxia. Blood drawn today included a CBC, mild drop in his hemoglobin from 14.5-13.1 Sodium is up to 131, yesterday morning it was 128 UA is from the 8th. Negative culture. Syphilis pending Brain MRI from the 11th reviewed. Head CT from the 8th reviewed Med review We continued his home tamsulosin, Demadex, lisinopril and vitamin-D. We have instituted Seroquel, initially a 25 mg b.i.d., I have increased this to 50 mg b.i.d. There is a p.r.n. order for lorazepam, olanzapine. Restarting Celexa and melatonin scheduled today Shift note: The pt has been pleasant and cooperative. He has been denying chest pain and short of breath. He said that he talked to his Spouse on the phone last night. He is ambulating in the room independently . He has been sleeping well throughout the night. He is alert and oriented to self, place, and time; the pt appeared forgetful occasionally. No signs of agitation noted throughout the shift. Review of Systems: See subjective Cardiac: No new chest pain/pressure/palpitations. Respiratory: no new dyspnea. GI: No abdominal bloating Objective: Vitals: see above Lungs: Clear. Cardiac: S1S2. Psychiatric: Patent is completely cooperative, aware, insightful. He can discuss the difference between what is real and what is imagine and or not real. Does not specifically remember his words that concerned his family. However he does remember that he questions himself from time to time of what he sees or is thinking is real. He knew the year, he could be insightful about phrases like, ?leave a sleeping dog lie? and ?my neighbor can help me because his hands are full? or ?if you live in a glass house, do not throwing rocks? Disposition/Potential discharge - He has improved to the point that we may be able to do home care with follow-up with outpatient psychiatry. I will be visiting with the family later today.. Total time is 35 minutes with greater than 50% spent in counseling and coordination of care. Exam Const: Vital Signs, click to edit/add: Vital Signs - 24 hr 04/10/22 07:54 04/10/22 09:34 04/10/22 15:03 Temperature 98.2 F 97.5 F L Pulse Rate [Right Brachial] Pulse Rate [Right Pulse Oximeter] 77 88 89 Respiratory Rate 16 16 18 Blood Pressure [Ri ght Arm] Blood Pressure [Ri ght Upper Arm] 149/72 H 131/67 121/56 L Pulse Oximetry 97 99 [facility] Room Air 04/10/22 16:00 04/10/22 16:00 04/10/22 16:00 Temperature 96.5 F L 96.5 F L Pulse Rate [Right Brachial] 82 82 Pulse Rate [Right Pulse Oximeter] Respiratory Rate 18 18 18 Blood Pressure [Ri ght Arm] 135/70 135/70 Blood Pressure [Ri ght Upper Arm] Pulse Oximetry 99 99 99 [facility] Room Air Room Air 04/10/22 20:24 04/10/22 23:00 04/10/22 23:00 Temperature 97.8 F 97.3 F L Pulse Rate [Right Brachial] 69 74 74 Pulse Rate [Right Pulse Oximeter] Respiratory Rate 18 18 18 Blood Pressure [Ri ght Arm] 124/58 L 136/60 Blood Pressure [Ri ght Upper Arm] Pulse Oximetry 99 97 Oxygen Delivery Me thod Room Air Room Air 04/11/22 05:00 Temperature Pulse Rate [Right Brachial] Pulse Rate [Right Pulse Oximeter] Respiratory Rate 18 Blood Pressure [Ri ght Arm] Blood Pressure [Ri ght Upper Arm] Pulse Oximetry Oxygen Delivery Me thod Room Air Labs Labs: Laboratory Results - last 24 hr 04/09/22 04/10/22 04/10/22 13:25 09:18 13:25 WBC RBC Hgb Hct MCV MCH MCHC Plt Count Sodium 130 L Potassium 4.2 Chloride 95 L Carbon Dioxide 26 BUN 13 Creatinine 0.8 Estimated Creat Clear 56.00 Estimated GFR 90 Glucose 105 Haptoglobin Cancelled Calcium 9.7 Total Bilirubin 4.0 H Direct Bilirubin Cancelled 0.6 H AST 19 ALT 13 Alkaline Phosphatase 65 Total Protein 7.3 Albumin 4.7 04/11/22 06:11 WBC 6.10 RBC 4.26 L Hgb 13.1 L Hct 38.0 MCV 89 MCH 31 MCHC 35 Plt Count 197 Sodium Potassium Chloride Carbon Dioxide BUN Creatinine Estimated Creat Clear Estimated GFR Glucose Haptoglobin Calcium Total Bilirubin Direct Bilirubin AST ALT Alkaline Phosphatase Total Protein Albumin
[2022-04-11 07:10] LABS: Potassium* 3.8 mmol/L (3.6-5.1); Sodium* 131 mmol/L (135-149)
[2022-04-11 07:12] LABS: Alkaline Phosphatase* 49 U/L (40-150); Aspartate Amino Transferase* 16 U/L (12-35); Bilirubin Direct* 0.1 mg/dL (0.0-0.5); Bilirubin Total* 1.8 mg/dL (0.1-1.5); Blood Urea Nitrogen* 27 mg/dL (7-30); Carbon Dioxide* 28 mmol/L (20-32); Estimated Glomerular Filt Rate 77 ml/min; Glucose* 93 mg/dL (60-115); Total Protein* 5.6 g/dL (6.0-8.3)
[2022-04-11 07:13] LABS: Alanine Aminotransferase* 12 U/L (4-50); Calcium* 8.9 mg/dL (8.4-10.6)
[2022-04-11 07:43] LABS: Erythrocyte SedimentationRate* 2 mm/hr (2-15)
[2022-04-11] MEDS: POTASSIUM CHLORIDE 10 MEQ CAPSULE ER PO (08:36)
[2022-04-11] MEDS: lisinopriL 10 MG TABLET PO (08:36)
[2022-04-11] MEDS: QUETIAPINE 25 MG TABLET 50 MG PO ×2 (08:36→22:15)
[2022-04-11] MEDS: TAMSULOSIN HCL 0.4 MG CAPSULE PO (08:36)
[2022-04-11] MEDS: CITALOPRAM HYDROBROMIDE 20 MG TABLET 10 MG PO (08:36)
[2022-04-11] MEDS: TORSEMIDE 5 MG TABLET PO (08:37)
[2022-04-11 18:24] LABS: Haptoglobin 193 mg/dL (30-200)
--- NOTE | 2022-04-11 19:49 | PC.NURSE ---
07-19: pt alert and oriented. Asking appropriate questions. Indep in room and halls. Pt showered this AM. VSS.
[2022-04-11] MEDS: MELATONIN 3 MG TABLET 6 MG PO (22:16)
[2022-04-12] VITALS (8 sets, daily range): BP systolic 132–155; BP diastolic 65–79; PULSE 71–91; RESP 16–18; TEMP 36.2–36.6; O2SAT 95–98
--- NOTE | 2022-04-12 05:26 | PC.NURSE ---
Shift note [id number] Pt with stable vitals. Up independantly in room, halls and to the BR. He has slept from 2200 to 0500 without any issues. He cont to be slightly confused at times. Follows directions well .
[2022-04-12 07:03] LABS: Hematocrit 38.1 % (37.0-53.0); Hemoglobin* 12.9 gm/dL (13.5-17.5); Mean Corpuscular HGB Conc 34 gm/dL (32-36); Mean Corpuscular Hemoglobin 30 pg (26-34); Mean Corpuscular Volume 90 fL (80-100); Platelet Count* 187 K/uL (140-440); Red Blood Count 4.24 m/uL (4.30-5.90); White Blood Count* 6.29 K/uL (4.50-11.00)
[2022-04-12 07:12] LABS: Slide Review Reflex No
[2022-04-12 07:19] LABS: Chloride* 98 mmol/L (96-114); Potassium* 3.6 mmol/L (3.6-5.1); Sodium* 131 mmol/L (135-149)
[2022-04-12 07:22] LABS: Blood Urea Nitrogen* 22 mg/dL (7-30); Carbon Dioxide* 29 mmol/L (20-32); Creatinine* 0.9 mg/dL (0.5-1.5); Estimated Glomerular Filt Rate 87 ml/min
[2022-04-12 07:23] LABS: Calcium* 8.8 mg/dL (8.4-10.6); Glucose* 92 mg/dL (60-115); Magnesium* 1.9 mg/dL (1.5-2.6)
[2022-04-12] MEDS: QUETIAPINE 25 MG TABLET 50 MG PO (08:24)
[2022-04-12] MEDS: POTASSIUM CHLORIDE 10 MEQ CAPSULE ER PO (08:24)
[2022-04-12] MEDS: TAMSULOSIN HCL 0.4 MG CAPSULE PO (08:24)
[2022-04-12] MEDS: CITALOPRAM HYDROBROMIDE 20 MG TABLET 10 MG PO (08:25)
[2022-04-12] MEDS: lisinopriL 10 MG TABLET PO (08:25)
[2022-04-12] MEDS: TORSEMIDE 5 MG TABLET PO (08:25)
--- NOTE | 2022-04-12 14:54 | PC.NURSE ---
shift note 07-15: indep in room. Calls appropriately. Pt needing direction and reassurance with tasks. When getting ready to take shower patients asks questions such as, ?Should I take my glasses off and hearing aids out?? ?Should I hang up the towel here so it's ready for me when I get out?? ? Daughter Elsi and Julieth in to visit, they stated pt requires such assistance/direction at home and that they have been working to help gain his confidence. ? Otherwise shift unremarkable. VSS. ?
--- NOTE | 2022-04-12 15:04 | P.IMPN_ITS ---
Progress Note: A&P Assessment and plan (1) Acute psychosis: Status: Acute Assessment and Plan: titrating the Seroquel to 100 mg b.i.d.. Scheduled Celexa and melatonin. we have outpatient psych appt for next week. (2) Hyponatremia: Status: Acute Assessment and Plan: Improved, stable. (3) Drop in hemoglobin: Status: Acute Assessment and Plan: Monitoring. (4) Hypertension: Problem details: Blood pressures consistently mildly elevated. Outpatient followup Status: Acute (5) Hearing loss of both ears: Problem details: Uses hearing aids Status: Acute (6) BPH (benign prostatic hyperplasia): Status: Acute Subjective Date Seen: 04/12/22 Interval history: Daily Progress Note - Hospital Medicine Day #:3 CC: Disordered thinking, hyponatremia NIGHT UPDATES FROM STAFF & MED, LAB, IMAGING UPDATES Patient was reported to have slept well. However, when I went in this morning he was telling me that there was a lot of commotion in the police were here several times. He felt like there were things he was not allowed to do but couldn't elaborate. When I asked him to explain exactly what he remembered about the police he went off track about asking me about my and my service. He does not appear overly agitated just more confused and a little overwhelmed. 138/66 Pulse 91 Afebrile No respiratory distress CBC is stable and unremarkable. His hemoglobin has continued to drift down somewhat. 13.9 down to 12.9 Sodium has been stable and increased. Lifetime load the last 7 days he was down to 122 and he is up to 131 today. The rest of his metabolic panel is unremarkable. As mentioned yesterday is TSH and ESR are on remarkable. UA is from the 8th. Negative culture. Syphilis pending Brain MRI from the 11th reviewed. Head CT from the 8th reviewed Med review We continued his home tamsulosin, Demadex, lisinopril and vitamin-D. We have instituted Seroquel, initially a 25 mg b.i.d., I have increased this to 50 mg b.i.d. - will increase to 100mg BID starting tonight. There is a p.r.n. order for lorazepam, olanzapine. Celexa and melatonin scheduled starting last night; 10mg and 5 mg respectively. Review of Systems: See subjective Cardiac: No new chest pain/pressure/palpitations. Respiratory: no new dyspnea. GI: No abdominal bloating Objective: Vitals: see above Lungs: Clear. Cardiac: S1S2. Psychiatric: As described above patient is more overwhelmed and mildly agitated this morning. No pressured speech. More at a loss of words in explanation for what is happening. He seems a little bit more off track. No obvious visual or auditory hallucinations currently but does report thinking police were on the floor last night. Disposition/Potential discharge - My plan remains the same. I would like to discharge him tomorrow with family support. He does have a follow-up with Dr. Mcnair, [facility], in about a week. Total time is 35 minutes with greater than 50% spent in counseling and coordination of care. Exam Const: Vital Signs, click to edit/add: Vital Signs - 24 hr 04/11/22 19:00 04/11/22 23:00 04/11/22 23:00 Temperature 97.9 F Pulse Rate [Right Brachial] 71 71 Respiratory Rate 18 18 18 Blood Pressure [Ri ght Arm] 157/70 H Pulse Oximetry 95 Oxygen Delivery Me thod Room Air 04/12/22 03:00 04/12/22 07:00 04/12/22 07:00 Temperature 97.7 F 97.6 F Pulse Rate [Right Brachial] 71 72 72 Respiratory Rate 18 18 18 Blood Pressure [Ri ght Arm] 149/71 H 150/74 H Pulse Oximetry 95 97 Oxygen Delivery Me thod Room Air Room Air 04/12/22 11:00 Temperature 97.6 F Pulse Rate [Right Brachial] 91 Respiratory Rate 18 Blood Pressure [Ri ght Arm] 138/66 Pulse Oximetry 96 Oxygen Delivery Me thod Room Air Labs Labs: Laboratory Results - last 24 hr 04/10/22 04/12/22 04/12/22 09:18 06:11 06:11 WBC 6.29 RBC 4.24 L Hgb 12.9 L Hct 38.1 MCV 90 MCH 30 MCHC 34 Plt Count 187 Sodium 131 L Potassium 3.6 Chloride 98 Carbon Dioxide 29 BUN 22 Creatinine 0.9 Estimated Creat Clear 56.00 Estimated GFR 87 Glucose 92 Haptoglobin 193 Calcium 8.8 Magnesium 1.9
[2022-04-12] MEDS: SODIUM CHLORIDE 1 GM TABLET PO (18:10)
--- NOTE | 2022-04-12 18:46 | PC.NURSE ---
pt up ind in room, denies any concerns this shift.
[2022-04-12] MEDS: QUETIAPINE 100 MG TABLET PO (20:06)
[2022-04-12] MEDS: MELATONIN 3 MG TABLET 6 MG PO (20:07)
[2022-04-13 02:56] VITALS: BP 134/72; PULSE 74; RESP 16; TEMP 36.9; O2SAT 97
--- NOTE | 2022-04-13 04:23 | PC.NURSE ---
Pt rested well this night. Pleasant and cooperative. Up IND in room. Reporting zero pain. No N/V.
[2022-04-13 07:00] VITALS: BP 167/79; PULSE 75; RESP 16; TEMP 37.1; O2SAT 97
[2022-04-13 07:02] LABS: HCO3 VBG 31 mmol/L (21-28); PCO2 VBG 50 mmHG (40-50); pH VBG 7.398 (7.32-7.43)
[2022-04-13] MEDS: SODIUM CHLORIDE 1 GM TABLET PO ×2 (08:05→12:11)
[2022-04-13 08:09] LABS: Chloride* 98 mmol/L (96-114); Sodium* 131 mmol/L (135-149)
[2022-04-13 08:10] LABS: Potassium* 4.1 mmol/L (3.6-5.1)
[2022-04-13 08:12] LABS: Creatinine* 0.9 mg/dL (0.5-1.5); Estimated Glomerular Filt Rate 87 ml/min
[2022-04-13 08:13] LABS: Blood Urea Nitrogen* 20 mg/dL (7-30); Calcium* 8.8 mg/dL (8.4-10.6); Carbon Dioxide* 32 mmol/L (20-32); Glucose* 92 mg/dL (60-115)
[2022-04-13 08:24] LABS: C Reactive Protein* < 0.5 mg/dL (0.5-1.0)
[2022-04-13] MEDS: lisinopriL 10 MG TABLET PO (08:37)
[2022-04-13] MEDS: POTASSIUM CHLORIDE 10 MEQ CAPSULE ER PO (08:37)
[2022-04-13] MEDS: TORSEMIDE 5 MG TABLET PO (08:37)
[2022-04-13] MEDS: TAMSULOSIN HCL 0.4 MG CAPSULE PO (08:37)
[2022-04-13] MEDS: CITALOPRAM HYDROBROMIDE 20 MG TABLET 10 MG PO (08:37)
[2022-04-13] MEDS: QUETIAPINE 100 MG TABLET PO (08:38)
[2022-04-13 11:00] VITALS: BP 135/63; PULSE 74; RESP 16; TEMP 36.5; O2SAT 95
--- NOTE | 2022-04-13 13:09 | P.DS_ITS ---
DS: Providers Provider Date Seen: 04/13/22 Date of admission: 04/10/22 16:26 Primary care physician: Malcolm Coleman MD Admitting Clinician: Kelton Betts MD Consults: 04/11/22 12:23 Consult to Occupational Therapy [CONS] Routine Comment: Reason(s) for OT Consult:: Evaluate and Treat Any Restrictions?:: No Restrictions Comment: moca. hx of psychosis. 04/11/22 16:52 Consult to Occupational Therapy [CONS] Routine Comment: Reason(s) for OT Consult:: Evaluate and Treat Any Restrictions?:: No Restrictions Comment: MOCA assessment, please Attending Physician on discharge: Jayla Sue MD [facility] Date of Discharge: 04/13/22 DS: Diagnosis Discharge Diagnosis (1) Acute psychosis: Status: Acute (2) Hyponatremia: Status: Acute (3) Anxiety: Status: Acute (4) Hyperbilirubinemia: Status: Acute Problem details: Chronic, suspected [place] (5) BPH (benign prostatic hyperplasia): Status: Acute DS: Summary Hospital Course Hospital Course: HOSPITALIST DISCHARGE SUMMARY ATTENDING PHYSICIAN: Jayla Sue MD FINAL DIAGNOSIS: Anxiety disorder with psychosis Hyponatremia Cognitive decline HOSPITAL FOLLOWUP ISSUES: 1. Psychiatric outpatient follow-up: Dr. Mcnair will see the patient Tuesday 04/17. 2. Hyponatremia, follow-up lab for 04/17 REFERRALS WHILE ADMITTED: OT and PT REFERRALS AFTER DISCHARGE: Return to Psychiatry BRIEF HOSPITAL COURSE: Victor Manuel is a 81-year-old who presented with his 2nd episode of psychosis in the last year. The 1st time he was transferred to inpatient geriatric psych unit. He discharged 5 days later on Seroquel. He did well for several months managing mild to moderate anxiety. He was admitted last week with hyponatremia. He was only discharge for about 12 hours and then presented again with an acute psychotic episode. He felt his telephone would cause a new nuclear war. He was quite agitated and speaking nonsensically. He was observed in our ER for 24 hours. His symptoms responded quickly and nearly completely to IV olanzapine and p.o. Seroquel. Due to lack of Geriatric psych beds he was brought to the [facility]. He was observed for 48 hours. He did have some auditory hallucinations the 1st night. He described police being on the floor not allowing him to use his cellphone. He was mildly anxious but not agitated. We up titrated his Seroquel to 100 mg b.i.d.. We started Celexa, 10 mg, and melatonin, 6 mg, at night. He tolerated these medication advancement in changes fine. The day of discharge I spoke with his outpatient psychiatrist and he agreed with the medication changes. We also instituted a 25-50 mg 1 or 2 time dose per day as needed for increasing intrusive thoughts or visions. His ESR was 2. He has a VDRL pending for syphilis. And his TSH was normal. VITAL SIGN, MEDICATION, LAB/MICRO, IMAGING SUMMARY (full details available in account tabs or by records request) Hemoglobin stable on discharge 13.0 Sodium is stable at 131. Otherwise normal electrolytes. Pending labs: VDRL for syphilis. Blood pressure 135/63. Pulse 74. Afebrile. Satting room air 95%. Brain MRI on admission Impression: 1. No radiographic evidence of acute intracranial abnormalities. 2. Mild cerebral volume loss. 3. Incidental left retrocerebellar arachnoid cyst. DISCHARGE MEDICATIONS: See Reconciled list REVIEW OF SYSTEMS No new chest pain or dyspnea Pain controlled No voiding difficulties Tolerating diet challenge Reports no intrusive thoughts or visions in the last 24 hours. PHYSICAL EXAM: CONSTITUTIONAL: Calm. No general distress. No agitation. VITAL SIGNS: see record. HEENT: Normocephalic, atraumatic. PERRL, EOMI, conjunctivae pink, no scleral icterus. Ears and nose externally normal. Pharynx normal. NECK: No JVD. No carotid bruit, no thyromegaly, no adenopathy. CHEST: Clear to auscultation bilaterally. HEART: S1 and S2 normal. Edema ABDOMEN: Soft, nontender. Normal bowel sounds. MUSCULOSKELETAL: No gross joint deformity or swelling. NEURO: Cranial nerves intact. Grossly intact. No asymmetric findings. SKIN: No rashes, petechiae, concerning changes PSYCHIATRIC: Mood euthymic. DISPOSITION: Home with family Time spent on discharge 37 minutes. Status at Discharge Overall status at discharge: patient is back to baseline Time Spent with Patient Time attestation: Total time spent providing and/or coordinating discharge services: Time spent: Greater than 30 minutes Exam Const: Vital Signs, click to edit/add: Vital Signs - 24 hr 04/12/22 16:59 04/12/22 17:00 04/12/22 19:47 Temperature 97.8 F 97.9 F Pulse Rate [Right Brachial] 78 78 83 Respiratory Rate 18 16 16 Blood Pressure [Ri ght Arm] 132/65 155/69 H Pulse Oximetry 95 98 Oxygen Delivery Me thod Room Air Room Air 04/12/22 22:32 04/12/22 22:33 04/13/22 02:56 Temperature 97.1 F L 98.4 F Pulse Rate [Right Brachial] 75 75 74 Respiratory Rate 16 16 16 Blood Pressure [Ri ght Arm] 153/79 H 134/72 Pulse Oximetry 98 97 Oxygen Delivery Me thod Room Air Room Air 04/13/22 07:00 04/13/22 07:00 04/13/22 11:00 Temperature 98.8 F 97.7 F Pulse Rate [Right Brachial] 75 75 74 Respiratory Rate 16 16 16 Blood Pressure [Ri ght Arm] 167/79 H 135/63 Pulse Oximetry 97 95 Oxygen Delivery Me thod Room Air Room Air DS: Data Data Completed and Pending Labs on day of discharge: Labs from last 24 hours 04/13/22 04/13/22 04/13/22 06:15 06:15 06:15 Hgb 13.0 L VBG pH 7.398 VBG pCO2 50 VBG pO2 49.0 H VBG HCO3 31 H Sodium 131 L Potassium 4.1 Chloride 98 Carbon Dioxide 32 BUN 20 Creatinine 0.9 Estimated Creat Clear 56.00 Estimated GFR 87 Glucose 92 Calcium 8.8 C-Reactive Protein < 0.5 L Discharge Plan Discharge Disposition: Home w/ Parent or Adult Date of Admission: 04/10/22 16:26 Attending Provider on Discharge: Jayla Sue Primary Care Provider: Malcolm Coleman Condition: Improved Anticipated Discharge Date/Time: 04/13/22 12:56 Discharge Medications: New melatonin 3 mg Tablet 6 mg PO HS Qty: 30 0RF quetiapine 100 mg Tablet 100 mg PO BID Qty: 60 0RF citalopram 20 mg Tablet 10 mg PO DAILY Qty: 30 0RF quetiapine [Seroquel] 50 mg tablet 25 mg PO ONCE Qty: 30 0RF Rx Instructions: May take 25-50mg for breakthru anxiety/hallucinations. Repeat dose in 2 hours if needed. Go to ED if symptoms persist. Continued tamsulosin 0.4 mg capsule 0.4 mg PO DAILY cholecalciferol (vitamin D3) [Vitamin D3] 25 mcg (1,000 unit) tablet 1,000 unit PO DAILY potassium chloride 10 mEq Capsule, Extended Release 10 meq PO DAILY Qty: 30 0RF torsemide 5 mg Tablet 5 mg PO DAILY Qty: 30 0RF lisinopril 10 mg Tablet 10 mg PO DAILY Qty: 30 0RF Discharge Orders: Discharge Order (Routine); Ordered 04/13/22 Ordered By: Jayla Sue Activity Restrictions/Additional Instructions: Recheck hyponatriemia on Wednesday. See Dr. Mcnair on Wednesday. He will discuss neuropsychiatric testing and medication management. Recommend a routine schedule that includes a walk daily. Routine bedtime. Activity Level: Activity as Tolerated Discharge Diet: Regular Follow Up Appointments: [facility] [Provider Group] - 04/17/22 8:00 am (Dr. Mcnair - scheduled for this Tuesday 04/17 BMP prior to appt. ) Malcolm Coleman MD [Primary Care Provider] - Forms: [facility] Info Instructions
--- NOTE | 2022-04-13 15:09 | PC.NURSE ---
Pt. pleasant and cooperative, up to chair for meals, indep in room. Denies any pain and N/V. Calls appropriately. VSS. Pt needs direction and reassurance with tasks like going to BR and when to sit in chair. Pt. Discharged today at 1415. Accompanied by Dtr. Calzada. Verbal and written discharge instructions signed and given to pt. and DtrSandra Calzada. Belongings form signed. IV removed intact.
[2022-04-14 00:26] LABS: Treponema pallidum VDRL Serum Non Reactive (Non Reactive)
== END 2022-04-13 14:15 | disposition home or self-care (01) | DRG 885 ==
LOC: ED 13:20 → MEDSURG 04-10 16:00
PROVIDERS: Family Medicine; Admitting Provider Internal Medicine; Emergency Provider Family Medicine; PCP Family Medicine; Visit Provider Internal Medicine
DX: F23 Brief psychotic disorder (principal); E87.1 Hypo-osmolality and hyponatremia; I45.10 Unspecified right bundle-branch block; K21.9 Gastro-esophageal reflux disease without esophagitis; I10 Essential (primary) hypertension; F41.9 Anxiety disorder, unspecified; N40.0 Benign prostatic hyperplasia without lower urinary tract symptoms; E80.4 Gilbert syndrome; H91.93 Unspecified hearing loss, bilateral
CPT/HCPCS: 36415; 70551; 80048; 80053; 80076; 80143; 80179; 80306; 82077; 82248; 82803; 83010; 83735; 84295; 84443; 85018; 85025; 85027; 85651; 86140; 86592; 86593; 87635; 93005; 97165; 97535; 99285; A9270; J2060; S0166

== ENCOUNTER 2022-05-06 13:30 | Outpatient (RCR) | payer OTHER, SELFPAY | END 2023-03-18 23:59 | disposition home or self-care (01) | PROVIDERS: PCP Family Medicine; Visit Provider Family Medicine | DX: G31.84 Mild cognitive impairment of uncertain or unknown etiology (principal); Z51.89 Encounter for other specified aftercare | CPT/HCPCS: 97165; 97535 ==